=== PATIENT | female | born 1980 | race Caucasian/White ===

== ENCOUNTER 2017-06-11 06:23 | Day surgery (SDC) | payer MEDICAID, SELFPAY ==
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
[2017-06-11 06:52] LABS: Internal QC Validated? YES +Cl - CLEAR BKGD; Pregnancy, Urine Negative Negative
[2017-06-11 07:06] VITALS: BP 115/77; PULSE 96; RESP 16; TEMP 36.8; O2SAT 100; BMI 21.1
[2017-06-11] MEDS: Clindamycin 900 MG/50 ML BAG 75 MG IV (08:27)
[2017-06-11] MEDS: Mupirocin Ointment 22gm Tube 1 APPLIC (12:45)
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
[2017-06-11 13:12] VITALS: BP 107/67; BP 115/77; PULSE 92; RESP 16; TEMP 36.4; O2SAT 98
--- NOTE | 2017-06-11 13:12 | PCM.DC ---
You will use the following diet at home:: No restrictions Discharge Activity: May not drive while taking narcotic pain medications., May Shower - only from the neck down in 2 days. wash face gently in the sink., - - keep head elevated. May resume sexual activity in: No Restrictions Weight Bearing Status: Weight bearing as tolerated Lifting Restrictions: 10 lbs. Keep extremity elevated above heart level: - - elevate head Call your doctor if your incision/area has: Continuous Slow Oozing, Sudden Increased Bleeding, Increased Pain/ Swelling, Increased Redness, Foul Smelling Discharge, Swelling at the incision site Call your doctor if you observe: Fever of 101 or Higher, Coldness, Increased Pain, Shortness of breath, Chest pain, Calf discomfort, Uncontrolled pain Change Dressing in (Days):: 2 - patient may change the right neck dressing. Remove Dressing in (days):: 5 - will remove ear dressing in the office. Cleanse incision/area with: - - may get incisions and grafts and flaps of the right ear wet in the shower after the skin graft dressing has been removed in the office. Allergies/Adverse Reactions: Allergies latex Allergy (Verified 05/13/17 10:29) Hives Medications to take at Discharge Clindamycin HCl [Cleocin] 300 mg PO TID #21 cap 06/11/17 Oxycodone HCl/Acetaminophen [Percocet 5/325] 1 - 2 tab PO 4X/DAY PRN PRN 5 Days #40 tab 06/11/17 The following prescriptions were given: Oxycodone HCl/Acetaminophen [Percocet 5/325] 1 - 2 tab PO 4X/DAY PRN PRN 5 Days #40 tab PRN Reason: Pain Clindamycin HCl [Cleocin] 300 mg PO TID #21 cap Primary Care Physician: Care Physician,No Primary [Primary Care Provider] - Please Follow Up With: Santos Corona MD When: thursday06/15/17. call [phone] for appt. Proposed Discharge Date: 06/11/17
[2017-06-11 13:30] VITALS: BP 100/58; BP 115/77; PULSE 75; RESP 16; O2SAT 98
[2017-06-11 13:45] VITALS: BP 115/77; BP 94/54; PULSE 85; RESP 16; O2SAT 97
[2017-06-11 14:00] VITALS: BP 115/77; BP 93/56; PULSE 75; RESP 16; TEMP 36.7; O2SAT 98
[2017-06-11 14:46] VITALS: BP 115/77
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
== END 2017-06-11 15:00 | disposition home or self-care (01) ==
LOC: SDC 06:24 → AC 06:24
PROVIDERS: Anesthesiology; Visit Provider Surgery
PROC: (CPT 15240; principal; 2017-06-11 07:50)
DX: S08.12 Partial traumatic amputation of ear (principal); L90.5 Scar conditions and fibrosis of skin; S01.35 Open bite of ear; W54.0XXS Bitten by dog, sequela; Y93.89 Activity, other specified; F17.210 Nicotine dependence, cigarettes, uncomplicated
CPT/HCPCS: 00120; 15240; 21235; 64450; 81025; J7120; J2405

== ENCOUNTER 2025-02-01 20:12 | Observation (INO) | payer MEDICAID, SELFPAY ==
[2025-02-01] VITALS (10 sets, daily range): BP systolic 113–178; BP diastolic 87–104; PULSE 81–136; RESP 16–20; TEMP 35.8–36.7; O2SAT 98–100; BMI 25.9; BMI 26.2; BMI 25.7
--- NOTE | 2025-02-01 20:20 | CT_ITS ---
PROCEDURE: STROKE CT BRAIN/HEAD WITHOUT CONT; STROKE CTA HEAD AND NECK W/CON 02/01/2025 REASON FOR EXAM: NEURO DEFICIT, ACUTE STROKE SUSPECTED TECHNIQUE: Procedure Code: CTBR.ST; CTCTA.ST.HN Modality: CT Procedure: STROKE BRAIN/HEAD WITHOUT CONT; STROKE CTA HEAD AND NECK W/CON Coronal and Sagittal reconstructions were provided. 3D post processing was performed. 100 cc of Isovue 370 intravenous contrast was administered. One or more dose reduction techniques were used (e.g., Automated exposure control, adjustment of the mA and/or kV according to patient size, use of iterative reconstruction technique. RADIATION DOSE SUMMARY: Head: DLP: 872.68 mGycm CTA head/neck: DLP: 964.1 mGycm COMPARISON: None available. FINDINGS: CTA HEAD: Patent intracranial arterial vasculature. No large vessel occlusion, flow- limiting stenosis, saccular aneurysm, or vascular malformation identified. Dural venous sinuses appear patent. CTA NECK: Conventional aortic arch branching. Bilateral cervical carotid and codominant vertebral arteries are patent without significant stenosis. No aneurysm or dissection. NONCONTRAST CT HEAD: No acute intracranial hemorrhage, extra-axial collection, mass effect or evidence of acute infarct. Ventricles and subarachnoid spaces are normal in size. Unremarkable orbits. Intact skull base and calvarium. Mild scattered peripheral mucosal thickening in the paranasal sinuses. No mastoid effusions. CT/STROKE Brain/Head without Cont IMPRESSION: No acute intracranial abnormality. Normal CTA of the head and neck. Findings communicated with provider Darby Goldstein 02/01/2025 at 7:55 p.m. 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 Reading Location: [id number]
--- NOTE | 2025-02-01 20:20 | CT_ITS ---
PROCEDURE: STROKE CT BRAIN/HEAD WITHOUT CONT; STROKE CTA HEAD AND NECK W/CON 02/01/2025 REASON FOR EXAM: NEURO DEFICIT, ACUTE STROKE SUSPECTED TECHNIQUE: Procedure Code: CTBR.ST; CTCTA.ST.HN Modality: CT Procedure: STROKE BRAIN/HEAD WITHOUT CONT; STROKE CTA HEAD AND NECK W/CON Coronal and Sagittal reconstructions were provided. 3D post processing was performed. 100 cc of Isovue 370 intravenous contrast was administered. One or more dose reduction techniques were used (e.g., Automated exposure control, adjustment of the mA and/or kV according to patient size, use of iterative reconstruction technique. RADIATION DOSE SUMMARY: Head: DLP: 872.68 mGycm CTA head/neck: DLP: 964.1 mGycm COMPARISON: None available. FINDINGS: CTA HEAD: Patent intracranial arterial vasculature. No large vessel occlusion, flow- limiting stenosis, saccular aneurysm, or vascular malformation identified. Dural venous sinuses appear patent. CTA NECK: Conventional aortic arch branching. Bilateral cervical carotid and codominant vertebral arteries are patent without significant stenosis. No aneurysm or dissection. NONCONTRAST CT HEAD: No acute intracranial hemorrhage, extra-axial collection, mass effect or evidence of acute infarct. Ventricles and subarachnoid spaces are normal in size. Unremarkable orbits. Intact skull base and calvarium. Mild scattered peripheral mucosal thickening in the paranasal sinuses. No mastoid effusions. CT/STROKE CTA Head AND Neck W/Con IMPRESSION: No acute intracranial abnormality. Normal CTA of the head and neck. Findings communicated with provider Darby Goldstein 02/01/2025 at 7:55 p.m. 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 Reading Location: [id number]
[2025-02-01 20:30] LABS: Hematocrit 37.6 % (37-47); Hemoglobin 13.3 g/dL (12.0-15.0); Immature Granulocytes Count 0.020 X10^3/uL (0.0-0.0); Mean Corp Hgb Conc 35.4 g/dL (32-36); Mean Corpuscular Volume 89.5 fL (81-99); Mean Platelet Vol. 9.5 fl (6.2-12.0); NRBC Flagged by Analyzer 0 % (0-5); Platelet Count 312 K/mm3 (150-450); RBC Distribution Width CV 12.7 % (11.6-14.6); RBC Distribution Width SD 41.4 fl (35.1-43.9); Red Blood Count 4.20 M/mm3 (4.2-5.4); White Blood Count 9.8 K/mm3 (4.4-11.0)
[2025-02-01 20:44] LABS: Prothrombin Time (Protime)PT. 13.5 SECONDS (11.7-14.9)
[2025-02-01 20:45] LABS: Partial Thromboplast Time 26.5 Seconds (24.1-36.2)
[2025-02-01 20:49] LABS: Anion Gap 11 (5-15); BUN 18 mg/dL (4-19); BUN/Creat Ratio 23.8 RATIO (10-20); Calcium,Total 9.4 mg/dL (7.6-11.0); Carbon Dioxide 25.4 mmol/L (21.0-32.0); Chloride 104 mmol/L (98-108); Estimated Creatinine Clearance 84.33 ml/min (50-250); Glucose 102 mg/dL (70-99); Potassium 3.6 mmol/L (3.3-5.1); Troponin T High Sensitivity 7 ng/L (<=14)
--- NOTE | 2025-02-01 21:14 | ED.VIS.STROK ---
HPI History of Present Illness Chief Complaint: Stroke Alert Narrative Narrative: Patient is a 44-year-old female presenting to the emergency department due to concern for stroke. Last known well was 5 PM. She is not on any anticoagulation at home. She reports that she felt that her equilibrium was off and developed slurred speech and right facial numbness. She denies any history of symptoms like this. She denied any drug use to me. Denied any chest pain, shortness of breath, abdominal pain, nausea, vomiting, diarrhea. Denies any fevers, headache, visual changes, neck or back pain. PFSH PFSH Medical History AFTERCARE PLASTIC SURGERY MULTPLE DOG BITE WOUNDS RIGHT MEDIAL CHEEK DOG BITE WOUND RIGHT EAR 4 CM CURVILINEAR DOG BITE WOUND RIGHT MEDIAL CHEEK MULTIPLE DOG BITE PUNCTURE WOUNDS RIGHT FOREARM 3 CM DOG BITE WOUND RIGHT TEMPORAL SCALP Smoker Bitten by dog, subsequent encounter Open bite of right ear, subsequent encounter OPEN BITE OF RIGHT MEDIAL CHEEK BY COMMISSURE, Open bite of right forearm, subsequent encounter Open bite of scalp, subsequent encounter Bitten by dog, sequela OPEN DOGBITE WOUND RIGHT MEDIAL CHEEK open dogbite wound right ear Past use of tobacco Home Medications ?Medication ?Instructions ?Recorded ?Last Taken ?Type NK 02/01/25 Unknown History Allergy/AdvReac Type Severity Reaction Status Date / Time latex Allergy Hives Verified 02/01/25 20:16 Family History Unknown No problems noted. Surgical History SURGICAL PREPARATION DOG BITE RIGHT MEDIAL CHEEK EXCISIONAL DEBRIDEMENT DOGBITE WOUND Social History Smoking Status: Current some day smoker tobacco type: cigarettes second hand exposure: Yes alcohol intake: former substance use type: marijuana what type of physical activity do you participate in: other seatbelt use: always additional social history: SUN EXPOSURE: FREQUENTLY ROS ROS ED ROS Narrative See HPI EXAM Physical Exam Narrative Exam Narrative: Vital signs: Reviewed General: Alert and oriented x 3. No acute distress HEENT: Head is normocephalic and atraumatic, sinuses nontender, pupils equal round and reactive. Nares are patent. Oropharynx and throat exams normal. Neck: Supple without lymphadenopathy nontender Cardiovascular: Regular rate and rhythm, no murmurs. No rubs or gallops. Normal S1 and S2 Respiratory: Clear to auscultation bilaterally. No wheezes, rales, rhonchi Abdominal: Soft and nontender. Normal bowel sounds. No guarding or rebound. Nonsurgical abdomen Extremities: No tenderness. No bruising. Normal range of motion. Normal sensation. Skin: No rash or redness. The rest of the physical exam is unremarkable Const Vital Signs: 02/01/25 20:17 02/01/25 20:35 02/01/25 20:35 Temperature 96.5 F L Temperature Source Temporal Pulse Rate 136 H 85 Respiratory Rate 20 H 16 Blood Pressure 151/95 H 178/104 H Blood Pressure Mean 113 128 Pulse Ox 98 100 100 Oxygen Delivery Method Room Air Room Air Room Air 02/01/25 20:48 02/01/25 21:02 02/01/25 21:18 Temperature 98.0 F Temperature Source Temporal Pulse Rate 87 87 83 Respiratory Rate 18 18 19 H Blood Pressure 155/98 H 146/93 H 150/96 H Blood Pressure Mean 117 110 114 Pulse Ox 100 100 98 Oxygen Delivery Method Room Air Room Air Room Air 02/01/25 21:30 02/01/25 22:00 02/01/25 22:00 Temperature 97.9 F Temperature Source Oral Pulse Rate 109 H 86 86 Respiratory Rate 17 16 16 Blood Pressure 113/91 H 155/91 H 155/91 H Blood Pressure Mean 98 112 112 Pulse Ox 100 99 99 Oxygen Delivery Method Room Air Room Air Room Air MDM MDM MDM Narrative Medical decision making narrative: Patient is a 44-year-old female presenting to the emergency department for strokelike symptoms. Stroke team was called by nursing staff in triage. I went to immediately evaluate the patient. NIH of 1 for the sensation deficit on the right sided cheek. Patient was reporting slurred speech but none was noted on my exam. Speech is clear. Patient was taken to CT for CT brain and CTA head and neck. Additional stroke workup was initiated. CBC with no leukocytosis and a normal hemoglobin. BMP with no significant normalities. Troponin and reflex within normal limits. EKG shows normal sinus rhythm. No ischemic changes. No dysrhythmia. TSH within normal limits. Urine drug screen positive for amphetamines, cocaine and cannabinoids. CT of the brain shows no acute intracranial abnormality. CTA of the head and neck was normal. Stroke radiology [facility], Dr. Prince Lord evaluated the patient at bedside via telerobot. When he evaluated the patient she also had a low NIH. Lytics were discussed with the patient however she agrees that they are nondisabling. Patient was loaded with aspirin and Plavix per recommendations from telestroke. Discussed admission for further stroke workup with the patient and she is agreeable. Patient admitted to Dr. Rico. Clinical impression: Stroke like symptoms Polysusbtance abuse History & Record Review Discussion w/independent historian: Patient Lab Data Attestation: I reviewed the patient's lab results. Labs: Laboratory Results - last 24 hr 02/01/25 02/01/25 02/01/25 01:34 20:16 20:20 WBC 9.8 RBC 4.20 Hgb 13.3 Hct 37.6 MCV 89.5 MCH 31.7 MCHC 35.4 RDW Std Deviation 41.4 RDW Coeff of Traci 12.7 Plt Count 312 MPV 9.5 Immature Gran % (Auto) 0.200 Neut % (Auto) 52.8 Lymph % (Auto) 36.0 [place] % (Auto) 7.0 Eos % (Auto) 3.5 Baso % (Auto) 0.5 Absolute Neuts (auto) 5.2 Absolute Lymphs (auto) 3.54 Nucleated RBC % 0 PT 13.5 INR 1.0 APTT 26.5 Sodium 140 Potassium 3.6 Chloride 104 Carbon Dioxide 25.4 Anion Gap 11 BUN 18 Creatinine 0.75 Estim Creat Clear Calc 84.33 Est GFR (MDRD) Non-Af 101 BUN/Creatinine Ratio 23.8 H Glucose 102 H Hemoglobin A1c 5.5 Calcium 9.4 Troponin T High Sens 7 Troponin T Hi Sens 2 Hr TSH 0.873 Urine Opiates Screen U Buprenorphine Qual Ur Oxycodone Screen Urine Methadone Screen Urine Fentanyl Screen Ur Barbiturates Screen Ur Phencyclidine Scrn Ur Amphetamines Screen U Benzodiazepines Scrn Urine Cocaine Screen U Cannabinoids Screen Ethyl Alcohol < 10.1 POC Glucose 94 02/01/25 02/01/25 21:03 22:16 WBC RBC Hgb Hct MCV MCH MCHC RDW Std Deviation RDW Coeff of Traci Plt Count MPV Immature Gran % (Auto) Neut % (Auto) Lymph % (Auto) [place] % (Auto) Eos % (Auto) Baso % (Auto) Absolute Neuts (auto) Absolute Lymphs (auto) Nucleated RBC % PT INR APTT Sodium Potassium Chloride Carbon Dioxide Anion Gap BUN Creatinine Estim Creat Clear Calc Est GFR (MDRD) Non-Af BUN/Creatinine Ratio Glucose Hemoglobin A1c Calcium Troponin T High Sens Troponin T Hi Sens 2 Hr < 6 TSH Urine Opiates Screen NEGATIVE U Buprenorphine Qual NEGATIVE Ur Oxycodone Screen NEGATIVE Urine Methadone Screen NEGATIVE Urine Fentanyl Screen NEGATIVE Ur Barbiturates Screen NEGATIVE Ur Phencyclidine Scrn NEGATIVE Ur Amphetamines Screen PRESUMPTIVE POSITIVE U Benzodiazepines Scrn NEGATIVE Urine Cocaine Screen PRESUMPTIVE POSITIVE U Cannabinoids Screen PRESUMPTIVE POSITIVE Ethyl Alcohol POC Glucose Radiography Diagnostic Testing: Clinical Impression(s) from Imaging Studies Brain CT 02/01/25 20:20 IMPRESSION: No acute intracranial abnormality. Normal CTA of the head and neck. Findings communicated with provider Darby Goldstein 02/01/2025 at 7:55 p.m. SUPERVISOR ABATTO[employer]. Reading Location: [facility] Head/Neck CTA 02/01/25 20:20 IMPRESSION: No acute intracranial abnormality. Normal CTA of the head and neck. Findings communicated with provider Darby Goldstein 02/01/2025 at 7:55 p.m. SUPERVISOR [employer]ATTO[employer]. Reading Location: [facility] Discharge Plan Disposition Disposition: Acute Care Hospital [facility] Discharge Date/Time: 02/01/25 22:44 NIHSS NIHSS 1a. Level of Consciousness: 0 - Alert; keenly responsive 1b. LOC Questions: 0 - Answers BOTH questions correctly 1c. LOC Commands: 0 - Performs BOTH tasks correctly 2. Best Gaze: 0 - Normal 3. Visual: 0 - No visual loss 4. Facial Palsy: 0 - Normal symmetrical movements 5a. Left Arm: 0 - No drift; arm holds 90 (or 45) degrees for full 10 seconds 5b. Right Arm: 0 - No drift; arm holds 90 (or 45) degrees for full 10 seconds 6a. Left Le - No drift; leg holds 30-degree position for full 5 seconds 6b. Right Le - No drift; leg holds 30-degree position for full 5 seconds 7. Limb Ataxia: 0 - Absent 8. Sensory: 1 - [id number] sensory loss; 9. Best Language: 0 - No aphasia; normal 10. Dysarthria: 0 - Normal 11. Extinction and Inattention: 0 - No abnormality Total: 1 Stroke Questions Stroke Team Activated: Yes Reviewed Inclusion/Exclusion criteria: Yes IV Thrombolytic Administered: No No contraindications from thrombolytic administration: No
[2025-02-01 21:38] LABS: Barbiturate Urine NEGATIVE (< 200 ng/mL); Benzodiazepine Urine NEGATIVE (< 200 ng/mL); PCP Urine NEGATIVE (< 25 ng/mL); THC Urine PRESUMPTIVE POSITIVE (< 50 ng/mL)
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
--- NOTE | 2025-02-01 22:28 | ECHOD_ITS ---
Reason For Study Reason For Study: TIA/STROKE Procedure This was a 2D Doppler, Color Flow transthoracic echocardiogram. Exam performed portable in patient room. Left Ventricle Normal size and thickness. The left ventricular ejection fraction is 65 %. No evidence for diastolic dysfunction. Right Ventricle Normal right ventricle. Atria The left and right atria are normal. Bubble contrast study is negative for PFO/ASD. Mitral Valve Trivial mitral valve insufficiency. Tricuspid Valve Trivial tricuspid valve insufficiency. Normal pulmonary artery pressure. Aortic Valve Trisinus/trileaflet aortic valve. Pulmonic Valve Trivial pulmonic valve insufficiency. Great Vessels Normal sized aortic root. Pericardium/Pleural No pericardial effusion. Medication Performed a rapid injection of agitated mix of 9 cc saline and 1cc air to assess for atrial septal defect. MMode/2D Measurements & Calculations LVIDd: 4.4 cm IVSd: 0.91 cm Ao root diam: 3.2 cm LVIDs: 3.0 cm LVPWd: 0.97 cm RVDd: 3.2 cm FS: 31.4 % LAV(MOD-bp): 32.5 ml LVAd ap4: 26.2 cm2 SV(MOD-sp4): 45.4 ml LAV(MOD-bp) Indexed: 20.0 ml/m2 LVLd ap4: 7.8 cm SI(MOD-sp4): 28.0 ml/m2 LAV(MOD-sp2): 30.0 ml EDV(MOD-sp4): 74.7 ml LAV(MOD-sp4): 33.6 ml EDV(sp4-el): 74.6 ml LVAs ap4: 14.8 cm2 LVLs ap4: 6.4 cm ESV(MOD-sp4): 29.4 ml ESV(sp4-el): 29.1 ml EF(MOD-sp4): 60.7 % EF(sp4-el): 61.0 % SV(sp4-el): 45.5 ml LA A4 area: 14.8 cm2 LA dimension(2D): 2.9 cm RA A4 area: 13.9 cm2 TAPSE: 2.0 cm Time Measurements MV dec time: 0.17 sec Doppler Measurements & Calculations MV E max mark: 78.2 cm/sec Lat Peak E' Mark: 14.1 cm/sec Med Peak E' Mark: 11.8 cm/sec MV A max mark: 77.8 cm/sec E/E' lat: 5.5 E/E' med: 6.6 MV E/A: 1.0 Ao V2 max: 130.6 cm/sec LV V1 max: 117.5 cm/sec PA V2 max: 75.4 cm/sec Ao max P.8 mmHg LV V1 max P.5 mmHg TR max mark: 226.2 cm/sec TR max P.5 mmHg ECHO/Echo Complete Interpretation Summary The left ventricular ejection fraction is 65 %. No evidence for diastolic dysfunction. Bubble contrast study is negative for PFO/ASD. Ordering Physician: Macho Farooq Performed By: Mirtha Moura RDCS
[2025-02-01 22:40] LABS: Troponin T High Sens 2 HR < 6 ng/L (<=14)
[2025-02-01] MEDS: 0.9% Normal Saline (1000mL) 1,000 ML 100 ML IV (23:39)
[2025-02-02 00:28] LABS: Alcohol, Blood (Medical)-Serum < 10.1 mg/dL (<=10.0)
[2025-02-02 01:07] VITALS: BMI 25.7
[2025-02-02 01:31] LABS: Troponin T High Sens 4 HR < 6 ng/L (<=14)
[2025-02-02 01:45] VITALS: O2SAT 99
[2025-02-02 03:00] VITALS: BP 139/86; PULSE 78; RESP 18; TEMP 36.3; O2SAT 97
[2025-02-02 06:25] LABS: Cholesterol 185 mg/dL (<=200); Low Density Lipoprotein Calc. 112 mg/dL; Triglycerides 167 mg/dL; Very Low Density Lipoprotein 33 mg/dL (5-40); cholesterol:hdl ratio screen 4.71
[2025-02-02 06:36] VITALS: BP 145/81; PULSE 73; RESP 18; TEMP 35.8; O2SAT 99
[2025-02-02 07:50] VITALS: BP 125/85; PULSE 78; RESP 16; TEMP 36.4; O2SAT 100
[2025-02-02] MEDS: Nicotine (PBKC) 14 MG Patch TD (07:55)
--- NOTE | 2025-02-02 10:30 | CASEMGMT ---
Social Work SW spoke with the patient regarding POA and SDOH. Patient reported [place] recently [place] here [place] after getting . She reported she has been staying with different friends. She reported her daughter lives here and stays with her dad. She reported she does not have a car and her friends gives her rides. She reported she is not interested in talking to someone about her drug use. She reported she does not where she is going to stay at discharge and she does not have anyone that can pick her up. CHIVO provided the patient with a informational booklet for POA/LW. SW provided the patient with a street card, [employer], [employer], food pantries and shelters as resources. CALLIE Gaines
--- NOTE | 2025-02-02 11:00 | CT_ITS ---
PROCEDURE: STROKE BRAIN/HEAD WITHOUT CONT 02/02/2025 REASON FOR EXAM: DIZZINESS, SLURRED SPEECH TECHNIQUE: Procedure Code: CTBR.ST Modality: CT Procedure: STROKE BRAIN/HEAD WITHOUT CONT Coronal and Sagittal reconstruction series were provided. One or more dose reduction techniques were used (e.g., Automated exposure control, adjustment of the mA and/or kV according to patient size, use of iterative reconstruction technique. RADIATION DOSE SUMMARY: CTDlvol: 45 mGy DLP: 748 mGycm COMPARISON: February 01, 2025 FINDINGS: Brain: There is no evidence of hemorrhage, acute ischemia or mass. No extra- axial fluid collection, midline shift or mass effect. CSF Spaces: Normal Sinuses/Mastoids: Clear Bones: No fracture CT/STROKE Brain/Head without Cont IMPRESSION: 1. No acute intracranial abnormality Stroke Alert: As above The critical findings in the findings and impression above were relayed directl y by me by telephone to AUNG Centeno in the PCU on 02/02/2025 at 11:21 am with readback verification. Reading Location: [id number]
--- NOTE | 2025-02-02 11:31 | PN.NEURO_ITS ---
Objective Data Objective Data Vital Signs: Vital Signs Temp Pulse Resp BP Pulse Ox O2 Del Method 97.6 F L 78 16 125/85 H 100 Room Air 02/02/25 07:50 02/02/25 07:50 02/02/25 07:50 02/02/25 07:50 02/02/25 07:50 02/02/25 07:50 Oxygen Delivery Method Room Air Weight: 63.7 kg Body Mass Index (BMI) 25.7 Intake & Output: Intake and Output for Last 24 Hours 01/31/25 02/01/25 02/02/25 23:59 23:59 23:59 Intake Total 1400 / 1400 Balance 1400 / 1400 Lab / Micro Data 02/01/25 20:20 02/01/25 20:20 Labs: Laboratory Results - last 24 hr 02/01/25 01:34: Hemoglobin A1c 5.5, TSH 0.873 02/01/25 20:16: POC Glucose 94 02/01/25 20:20: WBC 9.8, RBC 4.20, Hgb 13.3, Hct 37.6, MCV 89.5, MCH 31.7, MCHC 35.4, RDW Std Deviation 41.4, RDW Coeff of Traci 12.7, Plt Count 312, MPV 9.5, Immature Gran % (Auto) 0.200, Neut % (Auto) 52.8, Lymph % (Auto) 36.0, [place] % (Auto) 7.0, Eos % (Auto) 3.5, Baso % (Auto) 0.5, Absolute Neuts (auto) 5.2, Absolute Lymphs (auto) 3.54, Nucleated RBC % 0, PT 13.5, INR 1.0, APTT 26.5, Sodium 140, Potassium 3.6, Chloride 104, Carbon Dioxide 25.4, Anion Gap 11, BUN 18, Creatinine 0.75, Estim Creat Clear Calc 84.33, Est GFR (MDRD) Non-Af 101, B UN/Creatinine Ratio 23.8 H, Glucose 102 H, Calcium 9.4, Troponin T High Sens 7, Ethyl Alcohol < 10.1 02/01/25 21:03: Urine Opiates Screen NEGATIVE, U Buprenorphine Qual NEGATIVE, Ur Oxycodone Screen NEGATIVE, Urine Methadone Screen NEGATIVE, Urine Fentanyl Screen NEGATIVE, Ur Barbiturates Screen NEGATIVE, Ur Phencyclidine Scrn NEGATIVE, Ur Amphetamines Screen PRESUMPTIVE POSITIVE, U Benzodiazepines Scrn NEGATIVE, Urine Cocaine Screen PRESUMPTIVE POSITIVE, U Cannabinoids Screen PRESUMPTIVE POSITIVE 02/01/25 22:16: Troponin T Hi Sens 2 Hr < 6 02/02/25 00:40: Troponin T Hi Sens 4Hr < 6 02/02/25 05:01: Triglycerides 167, Cholesterol 185, LDL Cholesterol, Calc 112, VLDL Cholesterol 33, HDL Cholesterol 39 L, Cholesterol/HDL Ratio 4.71 Radiography Diagnostic Testing: Radiology Impression Brain CT 02/01/25 20:20 IMPRESSION: No acute intracranial abnormality. Normal CTA of the head and neck. Findings communicated with provider Daryb Goldstein 02/01/2025 at 7:55 p.m. RADIO F[employer]QU[employer]Y DESIGN ENGINEER. Reading Location: [facility] Head/Neck CTA 02/01/25 20:20 IMPRESSION: No acute intracranial abnormality. Normal CTA of the head and neck. Findings communicated with provider Darby Goldstein 02/01/2025 at 7:55 p.m. RADIO FREQUENCY DESIGN ENGINEER. Reading Location: [facility] Echocardiogram 02/01/25 22:28 Interpretation Summary The left ventricular ejection fraction is 65 %. No evidence for diastolic dysfunction. Bubble contrast study is negative for PFO/ASD. Ordering Physician: Macho Farooq Performed By: Mirtha Moura RDCS Brain CT 02/02/25 11:00 IMPRESSION: 1. No acute intracranial abnormality Stroke Alert: As above The critical findings in the findings and impression above were relayed directly by me by telephone to AUNG Centeno in the PCU on 02/02/2025 at 11:21 am with readback verification. Reading Location: [facility] Social Homelessness:: Sheltered Physical Exam Neuro Neuro Narrative: Neurological examination: General: The patient appears nutritionally appropriate, well-groomed, and appears comfortable in no acute distress. Mental Status: The patient?s mental status was normal including orientation. Language was intact. Cranial nerves: Visual daniels full, and extra-ocular motion was intact. Face motion symmetric. There was no dysarthria. Motor: Normal strength and tone in all four extremities. No pronator drift. Sensation: Decreased light touch in right face/arm/leg, no extinction. Coordination: Bilateral finger to nose was normal. There was no dysmetria. Gait: deferred Subject: Neurology Subjective Currently she has ARMSTRONG. She feels better. She still has weakness and numbness on right side (face/arm/leg). Balance is better. Patient denies drug use (says it was her boyfriends). She does have a surgical piercing in her face and can not have an MRI. Repeat CT brain negative today. EEG Results Procedure Details EEG Procedure Details: Assessment and Plan: Stroke Assessment/Plan NELSON HANNON is a 44 year old right handed female smoker with a history of polysubstance use who on 02/01/25 at 530p developed dizziness (light-headedness), dysarthria, and right sided numbness/heaviness. She also noted some dysequilibrium (felt off balance while preparing dinner). She presented to [place] ER. CT brain negative. CTA head/neck negative. Telestroke showed NIHSS- 1. She was admitted. Unable to MRI due to surgical piercing. Repeat CT brain negative. LDL 112. HgbA1c 5.5. TTE EF 65%, no shunt. She is on Asa/plavix, nicotine, lipitor 80, and lovenox SQ. Patient denies drug use. Neurological examination shows right sensory, NIHSS-1 (sensory-1) ASSESSMENT/PLAN: Possible acute ischemic stroke 1) Stroke work-up completed 2) Continue daily antiplatelet medication. Recommend dAPT (Asa/plavix) x 21 days then after that discontinue plavix and continue Asa only. 3) Continue vascular risk factor modification. On lipitor 80. Smoking cessation reinforced. Cessation of drugs of abuse reinforced. 4) Follow-up in outpatient neurology clinic. Will sign off, please call us back with further stroke related questions. Primary team messaged recs on backline. Camila Fabian MD NIHSS NIHSS Nursing Documentation NIHSS Nursing Documentation: NIHSS: Ischemic Stroke/TIA Start: 02/01/25 22:48 Text: For PCU Patients: NIH and Neuro Check every 4 Status: Active hours, PRN and with change in RN caregiver. Freq: [id number] Protocol: Activity Type Activity Date Activity User E-sign Co-sign Detail Recorded Client Recorded Date Recorded By Document 02/02/25 07:50 [id number] 02/02/25 08:02 HS 02/02/25 07:50 NIH Stroke Scale [NIHSS] A score of 0 is normal or asymptomatic . Total possible score is 42. Inpatient: RN or Physician to activate a stroke alert for onset of new stroke symptoms or with NIHSS increase >/= 3 points. Following change in neurological status, NIHSS will be performed per physician order or more frequently PRN. -1a. Level of Consciousness 0 - Alert; keenly responsive -1b. LOC Questions 0 - Answers BOTH questions correctly -1c. LOC Commands 0 - Performs BOTH tasks correctly -2. Best Gaze 0 - Normal -3. Visual 0 - No visual loss -4. Facial Palsy 0 - Normal symmetrical movements -5a. Left Arm 0 - No drift; arm holds 90 ( or 45) degrees for full 10 seconds -5b. Right Arm 0 - No drift; arm holds 90 ( or 45) degrees for full 10 seconds -6a. Left Leg 0 - No drift; leg holds 30- degree position for full 5 seconds -6b. Right Leg 0 - No drift; leg holds 30- degree position for full 5 seconds -7. Limb Ataxia 0 - Absent -8. Sensory 1 - Mild-to- moderate sensory loss; -9. Best Language 0 - No aphasia; normal -10. Dysarthria 0 - Normal -11. Extinction and Inattention 0 - No abnormality -Total 1 Query Text:A score of 0 is normal or asymptomatic. Total possible score is 42 . ED: Notify Physician for NIHSS increase by > / = 3 points. Inpatient: RN or Physician to activate a stroke alert for NIHSS increase of > / = 3 points. Coma Scale [Assess] -Eye Opening Spontaneous -Motor Obeys Commands -Verbal Oriented [Total] -Coma Scale Total 15 NIHSS 1a. Level of Consciousness: 0 - Alert; keenly responsive 1b. LOC Questions: 0 - Answers BOTH questions correctly 1c. LOC Commands: 0 - Performs BOTH tasks correctly 2. Best Gaze: 0 - Normal 3. Visual: 0 - No visual loss 4. Facial Palsy: 0 - Normal symmetrical movements 5a. Left Arm: 0 - No drift; arm holds 90 (or 45) degrees for full 10 seconds 5b. Right Arm: 0 - No drift; arm holds 90 (or 45) degrees for full 10 seconds 6a. Left Le - No drift; leg holds 30-degree position for full 5 seconds 6b. Right Le - No drift; leg holds 30-degree position for full 5 seconds 7. Limb Ataxia: 0 - Absent 8. Sensory: 1 - [id number] sensory loss; 9. Best Language: 0 - No aphasia; normal 10. Dysarthria: 0 - Normal 11. Extinction and Inattention: 0 - No abnormality Total: 1
--- NOTE | 2025-02-02 11:44 | CASEMGMT ---
Social Work SW spoke with the patient and completed a PHQ9. Patient reported she would not care if she , but she has never had thoughts of suicide. She reported she would never hurt herself. She reported she would never to that to her daughter. Patent reported she would be interested in counseling. She reported she has been diagnosed with depression, anxiety, PTSD and bi-polar. She reported she does not currently take any medication. She reported she previously took 18 different medications but she did not like how they made her feel. CHIVO called the [facility] and and their shelters are full. SW called [facility] and left a message. SW called [facility] and they are going the patient to schedule a DA and they are going to meet with the patient today at that hospital today. Patient reported she completed a Medicaid application today with J[employer]. Patient reported her boyfriend uses drugs. CALLIE Gaines
[2025-02-02 12:21] VITALS: BMI 25.7
--- NOTE | 2025-02-02 13:15 | CASEMGMT ---
Social Work CHIVO spoke with the patient and informed her that [facility] has a bed available. Patient is agreeable with going there at [place]. CHIVO scheduled transportation with [facility] transport for 300pm. CHIVO informed the patient, nurse and physician of the transportation time. Patient was not interested in having a referral to any shelters in [place]. [facility] and [facility] have no beds available. CHIVO informed the patient that [facility] will be contacting her to schedule a diagnostic assessment. A therapist from [facility] meet with the patient in the hospital. CALLIE Gaines
--- NOTE | 2025-02-02 13:25 | DCINST_ITS ---
Discharge Instructions DC O2, CPAP, BIPAP needs Home O2 Discharge instructions: No Dressing / Incision Discharge Activity: - (Increase activity as tolerated) Follow Up Care Test Results: Test results from this visit will be discussed in further detail at your follow- up appointment, if applicable. Discharge Plan Admission Admit Date/Time: 02/01/25 22:23 Primary Reason for Your Visit: Stroke symptoms Attending Provider: Jayda Chung Primary Care Provider: Care Physician,No Primary Consulting Providers: Johny Patel; Destiney Cardozo; Leela Duckworth; Gogo Chan; Alyssa Wooten; Dedrick Cruz; Marion Gibbs; Prince Lord; Santos Mccormick; Issa Saldivar; Mary Cavanaugh; Julianna Cadet; Lorenzo Adkins; Kaycee Garcia; Elvira Hidalgo; Nay Valenzuela; Kevon Crespo; Claritza Lozano; [place]; Camila Fabian; Zoie Valenzuela; Macho Farooq Instructions Patient Instructions: TIA Dc Additional Instructions / Restrictions: DISCHARGE INSTRUCTIONS PLEASE READ *Please take this with you to your next doctors appointment* - You have been diagnosed with a TIA, also called a mini stroke -You will need to take Plavix and aspirin for 21 days, afterwards you will continue aspirin -You also need to take atorvastatin daily on discharge -These medications were sent to [facility] pharmacy -It will be important that you quit smoking and avoid any illicit substance use -Please follow-up with neurology upon discharge, you can establish with a local neurology office, Dr. Trejo's office, upon discharge. Please call to schedule an appointment for TIA (ph [phone]) -Please call your primary care provider's office upon discharge to schedule a hospital follow up within 1 week. -If you do not have a primary care physician of list of local primary care physicians can be provided for you upon discharge. Please ask for this list prior to discharge -For any concerning signs or symptoms please call 911 or proceed to the nearest emergency department Discharge Orders/Prescriptions Prescriptions: New atorvastatin 80 mg Tablet 80 mg PO QHS 30 Days Qty: 30 1RF clopidogrel 75 mg Tablet 75 mg PO DAILY 21 Days Qty: 21 0RF aspirin 81 mg Tablet,Chewable 81 mg PO DAILYCM 30 Days Qty: 30 1RF Referrals / Follow Up: Dipak Trejo MD [Non-Staff -Ordering Privileges, Neurology] - Within 1 Month Referral Note: -Please follow-up with neurology upon discharge, you can establish with a local neurology office, Dr. Trejo's office, upon discharge. Please call to schedule an appointment for TIA ( [phone]) Care Physician,No Primary [Primary Care Provider, Medical] Referral Note: -If you do not have a primary care physician of list of local primary care physicians can be provided for you upon discharge. Please ask for this list prior to discharge Disposition Disposition (needs filled in before D/C Order can be placed): Home, Self Care
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
[2025-02-02 13:50] VITALS: BP 152/98; PULSE 84; RESP 18; TEMP 36.6; O2SAT 98
[2025-02-02] MEDS: FLU VACCINE 2025-26(6MOS UP) 45 MCG/0.5 ML SYRINGE IM (13:52)
--- NOTE | 2025-02-02 14:16 | CASEMGMT ---
Addendum entered by Sera Ellison 02/02/25 14:24: SW requested that the pharmacy deliver the medications to the patients room. Addendum entered by Sera Ellison 02/02/25 14:20: SW called the pharmacy and notified them that the patient is DC at 300pm today. Original Note: Social Work SW submitted RX assist with [facility] pharmacy. CALLIE Gaines
--- NOTE | 2025-02-02 15:01 | CASEMGMT ---
Social Work SW called [facility] transport and informed them that the patient maybe 5 to 10 minutes late getting downstairs for picker and sorter load and unload. CALLIE Gaines
--- NOTE | 2025-02-02 15:03 | PHA.DC_ITS ---
Pharmacy [facility] has performed discharge medication counseling for this patient. The patient was counseled on the following discharge medications and changes in medications for homegoing review. The Reason for Use, instructions for use, and potential side effects were reviewed for all new medications. The patient's questions regarding all of their medications were answered. The patient was able to verbally demonstrate an understanding of their discharge medications. Medications at Discharge Home Medications aspirin 81 mg chewable tablet 81 mg PO DAILYCM 30 days #30 tabs 02/02/25 atorvastatin 80 mg tablet 80 mg PO QHS 30 days #30 tabs 02/02/25 clopidogrel 75 mg tablet 75 mg PO DAILY 21 days #21 tabs 02/02/25
--- NOTE | 2025-03-01 15:36 | CASEMGMT ---
AUNG CM: Call received from pt stating she needed assistance with getting a f/u neurology appointment. States she was told she had to be seen in the ED to get an appointment. This automatic typewriter inspector contacted Dr. Trejo's office who states they need a referral and that pt's DC instructions stating pt is to f/u with them is a referral. Business Education Instructor states she will call patient to schedule an appointment. During call with pt, pt states she did attend the appointment last week at the [facility] and that she also scheduled a PCP appointment with [facility] but this appointment is not until April. Explained that the [facility] [place] could serve as her PCP if desired. Pt states she has a f/u appointment at [facility] [place] on 03/16 that she plans to attend. Sharita Tobar RN AC
== END 2025-02-02 15:09 | disposition home or self-care (01) ==
LOC: ED 21:19 → PCU 23:14
PROVIDERS: Admitting Provider Internal Medicine; Emergency Provider Student in an Organized Health Care Education/Training Program; Visit Provider Internal Medicine
DX: G45.9 Transient cerebral ischemic attack, unspecified (principal); F15.10 Other stimulant abuse, uncomplicated; F14.10 Cocaine abuse, uncomplicated; Z59.01 Sheltered homelessness; R47.81 Slurred speech; R29.701 NIHSS score 1; R26.2 Difficulty in walking, not elsewhere classified; R29.898 Other symptoms and signs involving the musculoskeletal system; Z79.899 Other long term (current) drug therapy; R20.0 Anesthesia of skin; F17.210 Nicotine dependence, cigarettes, uncomplicated; R42 Dizziness and giddiness; F12.10 Cannabis abuse, uncomplicated
CPT/HCPCS: 36415; 70450; 70496; 70498; 80048; 80061; 80307; 82077; 82962; 83036; 84443; 84484; 85025; 85610; 85730; 92610; 93005; 93306; 94762; 96360; 96361; 96372; 97161; 97166; 99221; 99285; Q9967; A4216; G0378

== ENCOUNTER → 2025-03-16 | Outpatient (CLI) | payer MEDICAID, SELFPAY ==
[2025-03-16 16:43] LABS: Hematocrit 42.6 % (37-47); Hemoglobin 14.4 g/dL (12.0-15.0); Mean Corp Hgb Conc 33.8 g/dL (32-36); Mean Corpuscular Volume 92.8 fL (81-99); Mean Platelet Vol. 10.8 fl (6.2-12.0); Platelet Count 368 K/mm3 (150-450); RBC Distribution Width CV 12.6 % (11.6-14.6); RBC Distribution Width SD 42.9 fl (35.1-43.9); Red Blood Count 4.59 M/mm3 (4.2-5.4); White Blood Count 9.5 K/mm3 (4.4-11.0)
[2025-03-16 17:29] LABS: Barbiturate Urine NEGATIVE (< 200 ng/mL); Benzodiazepine Urine NEGATIVE (< 200 ng/mL); PCP Urine NEGATIVE (< 25 ng/mL); THC Urine PRESUMPTIVE POSITIVE (< 50 ng/mL)
[2025-03-16 17:34] LABS: AST(SGOT) 20 U/L (<=31); Alanine Aminotransfer ALT/SGPT 15 U/L (<=34); Albumin, Serum 4.6 g/dL (3.5-5.0); Alkaline Phosphatase 96 U/L (35-104); Anion Gap 14 (5-15); BUN 15 mg/dL (4-19); BUN/Creat Ratio 22.1 RATIO (10-20); Calcium,Total 9.8 mg/dL (7.6-11.0); Carbon Dioxide 23.1 mmol/L (21.0-32.0); Chloride 105 mmol/L (98-108); Cholesterol 176 mg/dL (<=200); Globulin 3.3 g/dL (2.2-4.2); Glucose 92 mg/dL (70-99); Low Density Lipoprotein Calc. 101 mg/dL; Potassium 4.4 mmol/L (3.3-5.1); Triglycerides 196 mg/dL; Very Low Density Lipoprotein 39 mg/dL (5-40); Vitamin B12 459 pg/mL (180-914); Vitamin D,25 Hydroxy 21.2 ng/mL (30-100); cholesterol:hdl ratio screen 4.28
[2025-03-16 17:35] LABS: CRP < 3.00 mg/L (0.0-3.0); Magnesium 2.2 mg/dL (1.5-2.2)
--- OUTSIDE RECORDS SUMMARY | 2025-03-16 19:11 | XMS RPT_ITS | CCD ---
Author Organization [facility] Care Team Providers Care Coil Placer Name Role Phone Santos Corona MD Unavailable RIGO BENNETT MD Attending Unavailable JEREMY ADAIR, DR TORRI Bautista Primary Care Unavaila ble Care Physician, No Primary Primary Care Provider Unavailable Care Physician, No Primary Referring Provider Un available García Isidro Attending Provider Michelet Maciel Attending Provider Care Physician, No Primary Primary Care Physicia n Unavailable García Isidro Attending Physician [phone] Michelet Maciel Attending Physician Angelita ADAIR, Dr. Pastor Emergency Department Physici an Unavailable Dr. Macho Rico DO Admitting Physician Kera vailable Rico DO, Dr. Pritchard Attending Physician Kera vailable Johny Patel Consulting Unavailable Care Physician, No Primary Primary Care Unava ilable Macho Rico Admitting Unavailable Macho Rico Attending Unavailable Destiney Cardozo Consulting Unavailable Hinduitz, Leela Consulting Unavailable Dustin Gogo Consulting Unavailable Je, Alyssa Consulting Unavailable Dedrick Cruz Consulting Unavailable Marion Gibbs Consulting Unavailable Prince Lord Consulting Unavailable Santos Mccormick Consulting Unavailable Issa Saldivar Consulting Unavailable Mary Cavanaugh Consulting Unavailable Julianna Cadet Consulting Unavailable Lorenzo Adkins Consulting Unavailable Kaycee Garcia Consulting Unavailable Elvira Hidalgo Consulting Unavailable Zaghlouleh, Mhd Addy Consulting UnavailKevon [place] Consulting Unavailable Lozano, Rami Consulting Unavailable Dong, West Consulting Unavailable Rui, Camila Consulting Unavailable Zoie Valenzuela Consulting Unavailable Macho Rico Consulting Unavailable Jayda Chung Attending Unavailable Jayda Chung Consulting Unavailable Amy Pimentel Attending Unavailable Care Physician, No Primary Primary Care Unava ilable Johny Patel Consulting Unavailable Care Physician, No Primary Primary Care Unava ilable Macho Rico Admitting Unavailable Jayda Chung Attending Unavailable Destiney Cardozo Consulting Unavailable Leela Duckworth Consulting Unavailable Gogo Chan Consulting Unavailable Alyssa Wooten Consulting Unavailable Dedrick Cruz Consulting Unavailable Marion Gibbs Consulting Unavailable Prince Lord Consulting Unavailable Santos Mccormick Consulting Unavailable Issa Saldivar Consulting Unavailable Mary Cavanaugh Consulting Unavailable Julianna Cadet Consulting Unavailable Lorenzo Adkins Consulting Unavailable Kaycee Garcia Consulting Unavailable RidElvira bell Consulting Unavailable Shmuel, Babatunded Addy Consulting UnavailKevon [place] Consulting Unavailable Lozano, Rami Consulting Unavailable Dong, West Consulting Unavailable Rui, Camila Consulting Unavailable Nicolas, Zoie Consulting Unavailable Macho Rico Consulting Unavailable Care Physician, No Primary Referring Unava ilable Care Physician, No Primary Primary Care Unava ilable García Isidro Attending Unavailable Care Physician, No Primary Referring Unava ilable Care Physician, No Primary Primary Care Unava ilable García Isidro Attending Unavailable Care Physician, No Primary Primary Care Unava ilable Care Physician, No Primary Referring Unava ilable Michelet Maciel Attending Unavailable Dr. Darby Goldstein MD Emergency Department Physici an Unavailable Dr. Macho Rico DO Admitting Physician Kera vailable Rico DO, Dr. Pritchard Nurse Practitioner Unav zach Patel MD, Johny Nurse Practitioner Unavailable Cas ADAIR, Dr. Cabello Nurse Practitioner Leela Duckworth MD Nurse Practitioner Unavailab ming Chan DO, Dr. Bowens Nurse Practitioner Dr. Alyssa Wooten MD Nurse Practitioner Anthony ADAIR, Dr. Tse Nurse Practitioner [phone] Bernie ADAIR, Dr. Schultz Nurse Practitioner Risa ADAIR, Dr. Morrison Nurse Practitioner Jace ADAIR, Dr. Grahma Nurse Practitioner Yariel ADAIR, Dr. Parsons Nurse Practitioner Mao LUNFSORD, Dr. Hernandez Nurse Practitioner Chichi ADAIR, Julianna Nurse Practitioner Lucille ADAIR, Dr. Ventura Nurse Practitioner Jose ADAIR, Dr. Benoit Nurse Practitioner Gwen ADAIR, Dr. Felix Nurse Practitioner Shmuel ADAIR, Dr. Nay Daly Nurse Practitioner Zak ADAIR, Dr. Lund Nurse Practitioner Blake ADAIR, Dr. Jerry Nurse Practitioner Dong ADAIR, Dr. Dodson Nurse Practitioner Rui ADAIR, Dr. Jensen Nurse Practitioner Derrick Valenzuela MD, Lazarusavis Nurse Practitioner Derrick Chung MD, Dr. Montelongo Attending Physician Margarito ADAIR, Dr. Reyes Attending Physician Sheldon ADAIR, Dr. Montelongo Nurse Practitioner Allergies Allergy Classification Reported Allergen(s) Allergy Type Date of Onset Reaction(s) Facility (1 source) natural latex rubber; Translations: [LATEX] allergy to substance 02-20-2016 [facility] Work Phone: (6 sources) Latex Allergy to substance 07-22-2017 [facility] (1 source) Latex Drug allergy (disorder) 02-01-2025 [facility] Repository Medications Current Medications Medication Drug Class(es) Dates Sig (Normalized) Sig (Original) aspirin 81 mg chewable tablet (1 source) Platelet Aggregation Inhibitor, Nonsteroidal Anti-inflammatory Drug Start: 02-02-2025 take 1 tablet by mouth once daily at mealtime atorvastatin 80 mg oral tablet (1 source) HMG-CoA Reductase Inhibitor Start: 02-02-2025 take 1 tablet by mouth at bedtime clopidogrel 75 mg oral tablet (1 source) P2Y12 Platelet Inhibitor Start: 02-02-2025 take 1 tablet by mouth once daily Coram (Nk) (1 source) Start: 02-01-2025 Coram (Nk) Active February 01, 2025 12:00am Completed/Discontinued Medications Medication Drug Class(es) Dates Sig (Normalized) Sig (Original) acetaminophen 325 mg / oxyCODONE hydrochloride 5 mg oral tablet (20 sources) Opioid Agonist Start: 06-17-2017 End: 07-22-2017 take 1 tablet by mouth once daily as needed for pain Oxycodone-Acetamino phen (Percocet) 5-325 mg tablet Discontinued 0 PO 4 TIMES DAILY as needed for pain 30 0 July 01, 2017 July 08, 2017 12:00am July 22, 2017 12:05am Bitten by dog, sequela Open bite of right ear, sequela Open bite of scalp, sequela 5 mg PO 4X/DAY PRN Start: 06-11-2017 End: 07-01-2017 Oxycodone-Acetaminophen 1 TA BLET tablet Discontinued 1 - 2 {tbl} PO 4 TIMES DAILY NEEDED as needed for Pain 40 5 0 June 11, 2017 2:09pm July 01, 2017 10:33am Bitten by dog, sequela Open bite of right ear, sequela Start: 11-25-2016 End: 12-11-2016 take 1 tablet by mouth twice daily as needed for pain PERCOCET 5-325 MG TABS One tablet by andrey th twice daily as needed for pain OXYCODONE-ACETAMINOPHEN [id number] Santos Corona MD Start: 03-14-2016 End: 11-03-2016 take 1 tablet by mouth twice daily as needed for pain PERCOCET 5-325 MG TABS One tablet by andrey th twice daily as needed for pain OXYCODONE-ACETAMINOPHEN [id number] Cher Sandoval LPN Start: 02-20-2016 End: 11-03-2016 take 1 tablet by mouth four times daily as needed for pain PERCOCET 5-325 MG TABS One tablet by andrey th four times daily as needed for pain OXYCODONE-ACETAMINOPHEN [id number] Cher Hayes Sandoval STAFF MIDWIFE/APPRENTICESHIP DIRECTOR amoxicillin 875 mg / clavulanate 125 mg oral tablet (2 sources) Penicillin-class Antibacterial End: 11-03-2016 AUGMENTIN 875-125 MG TABS 1 tab bid AMOXICILLIN-POT CLAVULANATE [id number] Cher Soareson STAFF MIDWIFE/APPRENTICESHIP DIRECTOR ciprofloxacin 500 mg oral tablet (6 sources) Quinolone Antimicrobial Start: 07-21-2017 End: 02-01-2025 Ciprofloxacin Hcl 500 mg tablet Discontinued 500 mg PO TWICE A DAY 28 July 21, 2017 12:00am February 01, 2025 8:58pm administer within 120 minutes prior to surgical incision clindamycin 300 mg oral capsule (8 sources) Lincosamide Antibacterial Start: 06-11-2017 End: 07-01-2017 take 1 capsule by mouth three times daily Clindamycin Hcl 300 MG capsule Discontinued 300 mg PO THREE TIMES A DAY 21 0 June 11, 2017 1:00am July 01, 2017 10:33am Start: 11-25-2016 End: 12-11-2016 take 1 tablet by mouth three times daily CLEOCIN 300 MG CAPS One tablet by mouth three times daily CLINDAMYCIN HCL [id number] Santos Corona MD gabapentin 300 mg oral capsule (6 sources) Anti-epileptic Agent Start: 08-13-2017 End: 02-01-2025 take 1 capsule by mouth twice daily Gabapentin (Neurontin) 300 mg capsule Discontinued 300 mg PO TWICE A DAY 60 0 August 13, 2017 12:00am February 01, 2025 8:58pm sulfamethoxazole 800 mg / trimethoprim 160 mg oral tablet (2 sources) Dihydrofolate Reductase Inhibitor Antibacterial, Sulfonamide Antimicrobial End: 11-03-2016 BACTRIM DS 800-160 MG TABS 1 tab twice daily SULFAMETHOXAZOLE- TRIMETHOPRIM [id number] Cher Hayes Jaime STAFF MIDWIFE/APPRENTICESHIP DIRECTOR Problems Active Problems Problem Classification Problem Date Documented Date Episodic/Chronic Administrative/socia l admission (4 sources) Patient encounter status; Translations: [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-employment examination] 01-05-2025 Episodic Conditions associated with dizziness or vertigo (5 sources) Loss of equilibrium; Translations: [Dizziness and giddiness] Onset: 02-09-2025 02-01-2025 Episodic E Codes: Natural/environment (12 sources) Dog bite - wound; Translations: [Bitten by dog, sequela] 06-19-2017 Episodic Comment on above: multiple dog bite wo unds right medial cheek by commissure, 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 and supra-auricular area and full thickness abrasion posterior area and with exposed cartilage, right temporal scalp, and right forearm External Injury - Natural / Environment (3 sources) Bitten by dog, subsequent encounter; Translations: [Bitten by dog, sequela] Onset: 02-20-2016 03-10-2016 Open wounds of extremities (14 sources) Open bite of right forearm, subsequent encounter; Translations: [Open bite of right forearm, initial encounter] Onset: 02-20-2016 03-10-2016 Episodic Comment on above: multiple dog bite pu ncture wounds right forearm Open wounds of head; neck; and trunk (20 sources) Open bite of right cheek and temporomandibular area, subsequent encounter; Translations: [Open bite of right ear, subsequent encounter] Onset: 02-20-2016 03-10-2016 Episodic Comment on above: 3 cm dog bite wound right temporal scalp 4 cm curvilinear dog bite wound right medial cheek by commissure dog bite wound right ear involving 1.5 cm wound supra-auricular area and 3.5 cm partial amputation superior helix and 3 cm full thickness abrasion posterior area and with exposed cartilage late effect dog bite wound right ear with partial amputation deformity late effect dog bite wound right temporal scalp Other nervous system disorders (4 sources) Slurred speech; Translations: [Slurred speech] 02-01-2025 Episodic Other nervous system disorders (4 sources) Numbness of face; Translations: [Anesthesia of skin] 02-01-2025 Episodic Other nervous system disorders (2 sources) Slurred speech; Translations: [Slurred speech] Onset: 02-09-2025 Episodic Other nervous system disorders (1 source) Anesthesia of skin; Translations: [Anesthesia of skin] Onset: 02-09-2025 Episodic Residual codes; unclassified (4 sources) Tobacco user; Translations: [Tobacco use] 02-01-2025 Episodic Residual codes; unclassified (1 source) Tobacco use; Translations: [Tobacco use] Onset: 02-09-2025 Episodic Screening or history of mental health and substance abuse (7 sources) Ex-smoker; Translations: [Stopped smoking] Onset: 12-11-2016 02-02-2017 Episodic Comment on above: stopped smoking for the upcoming surgery Substance-related disorders (12 sources) Smoker; Translations: [Tobacco smoking behavior - finding] Onset: 02-20-2016 02-27-2016 Chronic Comment on above: F17.200 Transient cerebral ischemia (3 sources) Transient cerebral ischemic attack, unspecified; Translations: [Transient cerebral ischemia] Onset: 02-09-2025 02-02-2025 Chronic Unclassified (1 source) Aftercare ; Translations: [Encounter for other specified surgical aftercare] Onset: 02-20-2016 02-27-2016 Unclassified (1 source) Past or Other Problems Problem Classification Problem Date Documented Da te Episodic/Chronic Unclassified (6 sources) 3 CM DOG BITE WOUND RIGHT TEMPORAL SCALP 11-13-2021 Unclassified (6 sources) 4 CM CURVILINEAR DOG BITE WOUND RIGHT MEDIAL CHEEK 11-13-2021 Comment on above: BY COMMISSURE Unclassified (6 sources) AFTERCARE PLASTIC SURGERY 11-13-2021 Unclassified (6 sources) DOG BITE WOUND RIGHT EAR 11-13-2021 Comment on above: INVOLVING 1.5 CM WOU ND SUPRA-AURICULAR AREA AND 3.5 CM PARTIAL AMPUTATION SUPERIOR HELIX AND 3 CM FULL THICKNESS ABRASION POSTERIOR AREA AND WITH EXPOSED CARTILAGE Unclassified (6 sources) EXCISIONAL DEBRIDEMENT DOGBITE WOUND 11-13-2021 Comment on above: RIGHT EAR INVOLVING 1.5 CM WOUND SUPRA-AURICULAR AREA AND PARTIAL AMPUTATION SUPERIOR HELIX AND 3 CM FULL THICKNESS ABRASION POSTERIOR AREA AND WITH EXPOSED CARTILAGE AND WITH 3.5 CM COMPLEX CLOSURE REPAIR AND EXCISIONAL DEBRIDEMENT CURVILINEAR DOGBITE WOUND RIGHT MEDIAL CHEEK BY COMMISSURE WITH 4 CM COMPLEX CLOSURE REPAIR AND EXCISIONAL DEBRIDEMENT DOGBITE WOUND RIGHT TEMPORAL SCALP WITH 3 CM COMPLEX CLOSURE REPAIR AND EXCISIONAL DEBRIDEMENT MULTIPLE DOGBITE PUNCTURE WOUNDS RIGHT FOREARM INVOLVING THE DISTAL DORSAL ASPECT WITH 2 CM COMPLEX CLOSURE REPAIR AND INVOLVING THE MID DORSAL ULNAR ASPECT EXTENDING ONTO THE MID VOLAR ULNAR ASPECT WITH 10 CM COMPLEX CLOSURE REPAIR 02/12/16 Unclassified (6 sources) MULTIPLE DOG BITE PUNCTURE WOUNDS RIGHT FOREARM 11-13-2021 Unclassified (6 sources) MULTPLE DOG BITE WOUNDS RIGHT MEDIAL CHEEK 11-13-2021 Comment on above: BY COMMISSURE, RIGHT EAR WITH PARTIAL AMPUTATION HELIX AND SUPRA-AURICULAR AREA AND FULL THICKNESS ABRASION POSTERIOR AREA AND WITH EXPOSED CARTILAGE, RIGHT TEMPORAL SCALP, AND RIGHT FOREARM Unclassified (6 sources) OPEN BITE OF RIGHT MEDIAL CHEEK BY COMMISSURE, 11-13-2021 Comment on above: SUBSEQUENT ENCOUNTER Unclassified (6 sources) OPEN DOGBITE WOUND RIGHT MEDIAL CHEEK 11-13-2021 Comment on above: BY COMMISSURE , SEQU CAROL Unclassified (6 sources) SURGICAL PREPARATION DOG BITE RIGHT MEDIAL CHEEK 11-13-2021 Comment on above: BY COMMISSURE WITH E XCISION SCAR CONTOUR INDENTATION DEFORMITY 3.5 CM COMPLEX SECONDARY WOUND CLOSURE 11/18/16 Unclassified (6 sources) open dogbite wound right ear 11-13-2021 Comment on above: with partial amputat ion,sequela Results Test Name Value Interpretation Reference Range Facility Alcohol, Blood (Medical)-Ser umon 02-02-2025 SERUM ETOH < 10.1 Normal <=10.0 [facility] Comment on above: Result Comment: This test is for medical purposes only. The legal definition of intoxication varies according to local law. Performed By: #### L 501.9520, L501.9100, L501.9985 #### [facility] Laboratory [address] [place], [address] Calculated very low density lipoprotein (VLDL) cholesterol measurementOrdered By: Macho Kang on 02-02-2025 Calculated very low density lipoprotein (VLDL) cholesterol measurement 33 mg/dL 5-40 [facility] Discharge Instructionon Discharge Instruction [facility] Medical Records Department [address] [place] [address] Instructions for Home/Discharge Instructions 02/02/25 1325 MR#: [id number] Acct: [id number] Name: NELSON HANNON Rep #: [id number] : 1980 44 From: Jayda Chung MD PCP: Care Physician,No Primary Status:ADM ZHANE Discharge Instructions DC O2, CPAP, BIPAP needs Home O2 Discharge instructions: No Dressing / Incision Discharge Activity: - (Increase activity as tolerated) Follow Up Care Test Results: Test results from this visit will be discussed in further detail at your follow-up appointment, if applicable. Discharge Plan Admission Admit Date/Time: 02/01/25 22:23 Primary Reason for Your Visit: Stroke symptoms Attending Provider: Jayda Chung Primary Care Provider: Care Physician,No Primary Consulting Providers: Johny Patel; Destiney Cardozo; Leela Duckworth; Gogo Chan; Alyssa Wooten; Dedrick Cruz; Marion Gibbs; Prince Lord; Santos Mccormick; Issa Saldivar; Mary Cavanaugh; Julianna Cadet; Lorenzo Adkins; Kaycee Garcia; Evlira Hidalgo; Nay Mi; Kevon Crespo; Claritza Lozano; West Umana; Camila Fabian; Zoie Valenzuela; Macho Rico Instructions Patient Instructions: TIA Dc Additional Instructions / Restrictions: DISCHARGE INSTRUCTIONS PLEASE READ *Please take this with you to your next doctors appointment* - You have been diagnosed with a TIA, also called a mini stroke -You will need to take Plavix and aspirin for 21 days, afterwards you will continue aspirin -You also need to take atorvastatin daily on discharge -These medications were sent to [facility] pharmacy -It will be important that you quit smoking and avoid any illicit substance use -Please follow-up with neurology upon discharge, you can establish with a local neurology office, Dr. Trejo's office, upon discharge. Please call to schedule an appointment for TIA ( [phone]) -Please call your primary care provider's office upon discharge to schedule a hospital follow up within 1 week. -If you do not have a primary care physician of list of local primary care physicians can be provided for you upon discharge. Please ask for this list prior to discharge -For any concerning signs or symptoms please call [phone] or proceed to the nearest emergency department Discharge Orders/Prescriptions Prescriptions: New atorvastatin 80 mg Tablet 80 mg PO QHS 30 Days Qty: 30 1RF clopidogrel 75 mg Tablet 75 mg PO DAILY 21 Days Qty: 21 0RF aspirin 81 mg Tablet,Chewable 81 mg PO DAILYCM 30 Days Qty: 30 1RF Referrals / Follow Up: Dipak Trejo MD [Non-Staff -Ordering Privileges, Neurology] - Within 1 Month Referral Note: -Please follow-up with neurology upon discharge, you can establish with a local neurology office, Dr. Trejo's office, upon discharge. Please call to schedule an appointment for TIA ( [phone]) Care Physician,No Primary [Primary Care Provider, Medical] Referral Note: -If you do not have a primary care physician of list of local primary care physicians can be provided for you upon discharge. Please ask for this list prior to discharge Disposition Disposition (needs filled in before D/C Order can be placed): Home, Self Care 02/02/25 1327 Jayda Chung MD CC: Gogo Chan; Kaycee Garcia; Kevon Crespo; Alyssa Wooten MD; Leela Duckworth MD; Johny Patel MD; Dr. Destiney Cardozo MD; Dr. Macho Rico DO; Dr. Dedrick Cruz MD; Dr. Marion Gibbs MD; Dr. Santos Mccormick MD; Dr. Prince Lord MD; Dr. Issa Saldivar MD; Dr. Mary Cavanaugh DO; Dr. Lorenzo Adkins DO; Dr. Nay Mi MD; Dr. Elvira Hidalgo MD; Dr. Claritza Lozano MD; Dr. West Umana MD; Dr. Camila Fabian MD; Julianna Cadet DO; No Primary Care Physician; Zoie Valenzuela MD Signed Normal [facility] Echocardiogram study reportO rdered By: Amy Pimentel on 02-02-2025 Study report [facility] Cardiovascular Services [address] [place] [address] Echo Complete 02/02/25 0837 MR#: [id number] Acct: [id number] Name: NELSON HANNON Rep #:[id number] : 1980 44 From: Amy Pimentel MD Attending Dr: Dr. Jayda Chung MD Status: ADM ZHANE Ordering Dr: Macho Rico DO Date: 02/01/25 Location: U Sex: F C Admitted: 02/01/25 Reason For Study Reason For Study: TIA/STROKE Procedure This was a 2D Doppler, Color Flow transthoracic echocardiogram. Exam performed portable in patient room. Left Ventricle Normal size and thickness. The left ventricular ejection fraction is 65 %. No evidence for diastolic dysfunction. Right Ventricle Normal right ventricle. Atria The left and right atria are normal. Bubble contrast study is negative for PFO/ASD. Mitral Valve Trivial mitral valve insufficiency. Tricuspid Valve Trivial tricuspid valve insufficiency. Normal pulmonary artery pressure. Aortic Valve Trisinus/trileaflet aortic valve. Pulmonic Valve Trivial pulmonic valve insufficiency. Great Vessels Normal sized aortic root. Pericardium/Pleural No pericardial effusion. Medication Performed a rapid injection of agitated mix of 9 cc saline and 1cc air to assessfor atrial septal defect. MMode/2D Measurements & Calculations LVIDd: 4.4 cm IVSd: 0.91 cm Ao root diam: 3.2 cm LVIDs: 3.0 cm LVPWd: 0.97 cm RVDd: 3.2 cm FS: 31.4 % LAV(MOD-bp): 32.5 ml LVAd ap4: 26.2 cm2 SV(MOD-sp4): 45.4 ml LAV(MOD-bp) Indexed: 20.0 ml/m2 LVLd ap4: 7.8 cm SI(MOD-sp4): 28.0 ml/m2 LAV(MOD-sp2): 30.0 ml EDV(MOD-sp4): 74.7 ml LAV(MOD-sp4): 33.6 ml EDV(sp4-el): 74.6 ml LVAs ap4: 14.8 cm2 LVLs ap4: 6.4 cm ESV(MOD-sp4): 29.4 ml ESV(sp4-el): 29.1 ml EF(MOD-sp4): 60.7 % EF(sp4-el): 61.0 % _ SV(sp4-el): 45.5 ml LA A4 area: 14.8 cm2 LA dimension(2D): 2.9 cm _ RA A4 area: 13.9 cm2 TAPSE: 2.0 cm Time Measurements MV dec time: 0.17 sec Doppler Measurements & Calculations MV E max patricia: 78.2 cm/sec Lat Peak E' Patricia: 14.1 cm/sec Med Peak E' Patricia: 11.8 cm/sec MV A max patricia: 77.8 cm/sec E/E' lat: 5.5 E/E' med: 6.6 MV E/A: 1.0 Ao V2 max: 130.6 cm/sec LV V1 max: 117.5 cm/sec PA V2 max: 75.4 cm/sec Ao max P.8 mmHg LV V1 max P.5 mmHg TR max patricia: 226.2 cm/sec TR max P.5 mmHg ECHO/Echo Complete Interpretation Summary The left ventricular ejection fraction is 65 %. No evidence for diastolic dysfunction. Bubble contrast study is negative for PFO/ASD. Ordering Physician: Macho Rico Performed By: Mirtha Moura RDCS 02/02/25 1116 Date _ Amy Pimentel MD CC: Dr. Macho Rico DO; Dr. Jayda Chung MD; No Primary Care Physician ~ Date Dictated: 02/02/25836 Date Transcribed: 02/02/251115 Vessel Crew Member: Signed [facility] Work Phone: LDL calc ser/plasOrdered By: Macho Kang on 02-02-2025 Cholesterol in LDL [Mass/Vol] 112 mg/dL [facility] Comment on above: Wybasxumkt=806-832 m g/dL & Higher Lswi=745 mg/dL or greaterFriedwald Equation for LDL-C Lipid Profileon 02-02-2025 CHOL:HDL 4.71 Normal [facility] Comment on above: Order Comment: Comme nts: NPO at [place] prior to lipid panel Performed By: #### L 499.0043 #### [facility] [address] [place], [address] Cholesterol [Mass/Vol] 185 mg/dL Normal <=200 [facility] Comment on above: Order Comment: Comme nts: NPO at [place] prior to lipid panel Result Comment: Chol esterol level, Desirable <200 mg/dL Borderline high cholesterol 200-239 mg/dL High cholesterol >=240 mg/dL Recommendations of the NCEP Adult Treatment Panel for the following risk-cutoff thresholds for the [place] population. Performed By: #### L 499.0043 #### [facility] [address] [facility] [address] Cholesterol in HDL [Mass/Vol] 39 mg/dL Low [facility] Comment on above: Order Comment: Comme nts: NPO at [place] prior to lipid panel Result Comment: Sera onal Cholesterol Education Program (NCEP) guidelines: <40 mg/dL: Low HDL-cholesterol (major risk factor for CHD) >= 60 mg/dL: High HDL-cholesterol (negative risk factor for CHD) HDL-cholesterol is affected by a number of factors, e.g. smoking, exercise, hormones, sex and age. Performed By: #### L 499.0043 #### [facility] [address] [facility] [address] Cholesterol in LDL [Mass/Vol] 112 mg/dL Normal [facility] Comment on above: Order Comment: Comme nts: NPO at [place] prior to lipid panel Result Comment: Bord rgpccm=361-004 mg/dL Higher Thau=554 mg/dL or greater Friedwald Equation for LDL-C Performed By: #### L 499.0043 #### [facility] [address] [facility] [address] Cholesterol in VLDL [Mass/Vol] 33 mg/dL Normal 5-40 [facility] Comment on above: Order Comment: Comme nts: NPO at [place] prior to lipid panel Performed By: #### L [id number] #### [facility] [address] [facility] [address] Triglyceride [Mass/Vol] 167 mg/dL Normal [facility] Comment on above: Order Comment: Comme nts: NPO at [place] prior to lipid panel Result Comment: The drugs N-Acetylcysteine and Metamizole may falsely depress this assay. Normal range: <150 mg/dL Borderline High: 150-199 mg/dL High: 200-499 mg/dL Very High: >500 mg/dL Performed By: #### L 499.0043 #### [facility] [address] [place], [place], [address] STROKE Brain/Head without Co nton 02-02-2025 STROKE Brain/Head without Cont [facility] Imaging Services [address] [place] [address] STROKE Brain/Head without Cont MR#: [id number] Acct: [id number] Name: NELSON HANNON Rep #: [id number] : 1980 F 44 From: Luca Douglas MD PCP: Care Physician,No Primary Status: ADM ZHANE Study: STROKE Brain/Head without Cont Date of Exam: Exam# [id number] Ordering Dr: Macho Rico DO PROCEDURE: STROKE BRAIN/HEAD WITHOUT CONT 02/02/2025 REASON FOR EXAM: DIZZINESS, SLURRED SPEECH TECHNIQUE: Procedure Code: CTBR.ST Modality: CT Procedure: STROKE BRAIN/HEAD WITHOUT CONT Coronal and Sagittal reconstruction series were provided. One or more dose reduction techniques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 [facility] Comment on above: Result Comment: Norm al < 5.7 % Prediabetic 5.7 - 6.4 % Diabetic >or= 6.5 % Please note range changes. Performed By: #### L 501.9521, L501.9100, L501.9985 #### [facility] [address] [place], [address] Hemoglobin A1c percentageOrd ered By: Macho Kang on 02-01-2025 HbA1c (Bld) [Mass fraction] 5.5 % <5.7 [facility] Comment on above: Normal < 5.7 % Predi abetic 5.7 - 6.4 % Diabetic >or= 6.5 % Please note range changes. Hemoglobin measurementOrdere d By: Darby Goldstein on 02-01-2025 Hemoglobin (Bld) [Mass/Vol] 13.3 g/dL 12.0-15.0 [facility] Immature granulocytes/100 WB C Auto (Bld)Ordered By: Darby Goldstein on 02-01-2025 Immature granulocytes/100 WBC (Bld) 0.200 % 0.0-0.9 [facility] Comment on above: IG% - Immature Granu locytes (promyelocytes, myelocytes and metamyelocytes) > 1% indicates that a LEFT SHIFT is Present. International normalized rat io (INR) calculationOrdered By: Darby Goldstein on 02-01-2025 INR Coag (Bld) [Relative time] 1.0 {INR} [facility] L501.4021on 02-01-2025 Trop T High Sen 7 ng/L Normal <=14 [facility] Comment on above: Performed By: #### L 300.3900, L500.2500, L300.4310, L100.0100, L501.4021 #### [facility] [address] [place], [address] MCV (mean corpuscular volume ) determinationOrdered By: Darby Goldstein on 02-01-2025 MCV (RBC) [Entitic vol] 89.5 fL 81-99 [facility] Mean corpuscular hemoglobin (MCH) determinationOrdered By: Darby Goldstein on 02-01-2025 MCH (RBC) [Entitic mass] 31.7 pg 27.0-32.0 [facility] Mean corpuscular hemoglobin concentration (MCHC) determinationOrdered By: Darby Goldstein on 02-01-2025 MCHC (RBC) [Mass/Vol] 35.4 g/dL 32-36 [facility] Mean platelet volume determi nationOrdered By: Darby Goldstein on 02-01-2025 Platelet mean volume (Bld) [Entitic vol] 9.5 fL 6.2-12.0 [facility] Monocyte percentageOrdered B y: Darby Goldstein on 02-01-2025 Monocytes/100 WBC (Bld) 7.0 % 0-10 [facility] Neutrophil percentageOrdered By: Darby Goldstein on 02-01-2025 Neutrophils/100 WBC (Bld) 52.8 % 47-70 [facility] No Panel InformationOrdered By: Darby Goldstein on 02-01-2025 Urine Buprenorphine Qualitative Negative < 200 ng/mL [facility] Urine Oxycodone Screen Negative < 100 ng/mL [facility] Nucleated red blood cell per centageOrdered By: Darby Goldstein on 02-01-2025 Nucleated RBC/100 WBC (Bld) [Ratio] 0 % 0-5 [facility] Partial Thromboplast Timeon 02-01-2025 aPTT Coag (Bld) [Time] 26.5 s Normal 24.1-36.2 [facility] Comment on above: Performed By: #### L 300.3900, L500.2500, L300.4310, L100.0100, L501.4021 #### [facility] [address] [place], [address] Platelet countOrdered By: Carlos Goldstein on 02-01-2025 Platelets (Bld) [#/Vol] 312 10*3/uL 150-450 [facility] Potassium measurement (mass/ volume)Ordered By: Darby Goldstein on 02-01-2025 Potassium (Unsp spec) [Mass/Vol] 3.6 mmol/L 3.3-5.1 [facility] Prothrombin Time w/INRon INR Coag (PPP) [Relative time] 1.0 {INR} Normal [facility] Comment on above: Performed By: #### L 300.3900, L500.2500, L300.4310, L100.0100, L501.4021 #### [facility] [address] [place], [address] PT Coag (PPP) [Time] 13.5 s Normal 11.7-14.9 [facility] Comment on above: Performed By: #### L 300.3900, L500.2500, L300.4310, L100.0100, L501.4021 #### [facility] [address] [place], [address] Prothrombin timeOrdered By: Darby Goldstein on 02-01-2025 PT Coag (PPP) [Time] 13.5 s 11.7-14.9 [facility] Quantitative urine opiates m easurementOrdered By: Darby Goldstein on 02-01-2025 Opiates Ql (U) Negative < 300 ng/mL [facility] RBC Auto (Bld) [#/Vol]Ordere d By: Darby Goldstein on 02-01-2025 RBC (Bld) [#/Vol] 4.20 10*6/uL 4.2-5.4 [facility] STROKE Brain/Head without Co nton 02-01-2025 STROKE Brain/Head without Cont [facility] Services [address] [place], [place] [address] STROKE Brain/Head without Cont MR#: [id number] Acct: [id number] Name: NELSON HANNON Rep #: [id number] : 1980 F 44 From: Jamie Wu MD PCP: Care Physician,No Primary Status: PRE ER Study: STROKE Brain/Head without Cont Date of Exam: Exam# [id number] Ordering Dr: Darby Goldstein MD PROCEDURE: STROKE CT BRAIN/HEAD WITHOUT CONT; STROKE CTA HEAD AND NECK W/CON 02/01/2025 REASON FOR EXAM: NEURO DEFICIT, ACUTE STROKE SUSPECTED TECHNIQUE: Procedure Code: CTBR.ST; CTCTA.ST.HN Modality: CT Procedure: STROKE BRAIN/HEAD WITHOUT CONT; STROKE CTA HEAD AND NECK W/CON Coronal and Sagittal reconstructions were provided. 3D post processing was performed. 100 cc of Isovue 370 intravenous contrast was administered. One or more dose reduction techniques were used (e.g., Automated exposure control, adjustment of the mA and/or kV according to patient size, use of iterative reconstruction technique. RADIATION DOSE SUMMARY: Head: DLP: 872.68 mGycm CTA head/neck: DLP: 964.1 mGycm COMPARISON: None available. FINDINGS: CTA HEAD: Patent intracranial arterial vasculature. No large vessel occlusion, flow-limiting stenosis, saccular aneurysm, or vascular malformation identified. Dural venous sinuses appear patent. CTA NECK: Conventional aortic arch branching. Bilateral cervical carotid and codominant vertebral arteries are patent without significant stenosis. No aneurysm or dissection. NONCONTRAST CT HEAD: No acute intracranial hemorrhage, extra-axial collection, mass effect or evidence of acute infarct. Ventricles and subarachnoid spaces are normal in size. Unremarkable orbits. Intact skull base and calvarium. Mild scattered peripheral mucosal thickening in the paranasal sinuses. No mastoid effusions. CT/STROKE Brain/Head without Cont IMPRESSION: No acute intracranial abnormality. Normal CTA of the head and neck. Findings communicated with provider Darby Goldstein 02/01/2025 at 7:55 p.m. TON CYLINDER INSPECTOR. Reading Location: [facility] CC: Dr. Darby Goldstein MD; No Primary Care Physician Vessel Crew Member: Signed Normal [facility] STROKE CTA Head AND Neck W/C onon 02-01-2025 STROKE CTA Head AND Neck W/Con [facility] Imaging Services [address] [place] [address] STROKE CTA Head AND Neck W/Con MR#: [id number] Acct: [id number] Name: NELSON HANNON Rep #: [id number] : 1980 F 44 From: Jamie Wu MD PCP: Care Physician,No Primary Status: PRE ER Study: STROKE CTA Head AND Neck W/Con Date of Exam: Exam# [id number] Ordering Dr: Darby Goldstein MD PROCEDURE: STROKE CT BRAIN/HEAD WITHOUT CONT; STROKE CTA HEAD AND NECK W/CON 02/01/2025 REASON FOR EXAM: NEURO DEFICIT, ACUTE STROKE SUSPECTED TECHNIQUE: Procedure Code: CTBR.ST; CTCTA.ST.HN Modality: CT Procedure: STROKE BRAIN/HEAD WITHOUT CONT; STROKE CTA HEAD AND NECK W/CON Coronal and Sagittal reconstructions were provided. 3D post processing was performed. 100 cc of Isovue 370 intravenous contrast was administered. One or more dose reduction techniques were used (e.g., Automated exposure control, adjustment of the mA and/or kV according to patient size, use of iterative reconstruction technique. RADIATION DOSE SUMMARY: Head: DLP: 872.68 mGycm CTA head/neck: DLP: 964.1 mGycm COMPARISON: None available. FINDINGS: CTA HEAD: Patent intracranial arterial vasculature. No large vessel occlusion, flow-limiting stenosis, saccular aneurysm, or vascular malformation identified. Dural venous sinuses appear patent. CTA NECK: Conventional aortic arch branching. Bilateral cervical carotid and codominant vertebral arteries are patent without significant stenosis. No aneurysm or dissection. NONCONTRAST CT HEAD: No acute intracranial hemorrhage, extra-axial collection, mass effect or evidence of acute infarct. Ventricles and subarachnoid spaces are normal in size. Unremarkable orbits. Intact skull base and calvarium. Mild scattered peripheral mucosal thickening in the paranasal sinuses. No mastoid effusions. CT/STROKE CTA Head AND Neck W/Con IMPRESSION: No acute intracranial abnormality. Normal CTA of the head and neck. Findings communicated with provider Darby Goldstein 02/01/2025 at 7:55 p.m. TON CYLINDER INSPECTOR. Reading Location: [facility] CC: Dr. Darby Goldstein MD; No Primary Care Physician Vessel Crew Member: Signed Normal [facility] Screening urine fentanyl roro surementOrdered By: Darby Goldstein on 02-01-2025 fentaNYL Screen Ql (U) Negative <5 ng/mL [facility] Comment on above: CONFIRMATORY TESTING FOR ALL POSITIVE URINE DRUG SCREENRESULTS WILL ONLY BE SENT OUT UPON PHYSICIAN ORDER. [employer] Urine Drug Screen methods provide only preliminaryanalytical test results. A more specific alternate chemicalmethod must be used in order to obtain a confirmedanalytical result. Gas chromatography/mass spectrometery(GC/MS) is the preferred confirmatory method. Clinicalconsideration and professional judgement should be appliedto any drug of abuse test result, particularly whenpreliminary positive results are used. Urine TCA testing must be ordered separately. Use test mnemonic: [facility] Serum creatinine measurement (mass/volume)Ordered By: Darby Goldstein on 02-01-2025 Creatinine [Mass/Vol] 0.75 mg/dL 0.70-1.20 [facility] Serum glucose measurement (m ass/volume)Ordered By: Darby Goldstein on 02-01-2025 Glucose [Mass/Vol] 102 mg/dL High 70-99 [facility] Serum or plasma calcium chaz urement (mass/volume)Ordered By: Darby Goldstein on 02-01-2025 Calcium [Mass/Vol] 9.4 mg/dL 7.6-11.0 [facility] Serum or plasma ethanol chaz urement (mass/volume)Ordered By: Macho Kang on 02-01-2025 Ethanol [Mass/Vol] mg/dL <10.1 [facility] Comment on above: This test is for med ical purposes only. The legal definition of intoxication varies according to local law. Serum or plasma urea nitroge n measurement (mass/volume)Ordered By: Darby Goldstein on 02-01-2025 Urea nitrogen [Mass/Vol] 18 mg/dL 4-19 [facility] Sodium levelOrdered By: Sukhjinder Goldstein on 02-01-2025 Sodium [Moles/Vol] 140 mmol/L 133-145 [facility] TSH DL <= 0.005 mIU/L QnOrde red By: Macho Kang on 02-01-2025 TSH Qn 0.873 uIU/mL 0.300-4.200 [facility] Troponin T HS 2 HRon 025 Trop T High Sen < 6 Normal <=14 [facility] Comment on above: Performed By: #### L 499.0042 #### [facility] [address] [facility] [address] Troponin T.cardiac [Mass/vol ume] in Serum or Plasma by High sensitivity methodOrdered By: Darby Goldstein on 02-01-2025 Troponin T.cardiac High sensitivity method [Mass/Vol] < 6 ng/L <14 [facility] Troponin T.cardiac High sensitivity method [Mass/Vol] 7 ng/L <14 [facility] Urine Drug Screen (VISTA)on 02-01-2025 AMPHETAMINES Positive Normal <1000 ng/mL [facility] Comment on above: Result Comment: If c onfirmation testing is needed, a separate order will be required to send out testing to the reference laboratory. Performed By: #### L 505.5000 #### [facility] [address] [place], [address] BARBITIURATES Negative Normal < 200 ng/mL [facility] Comment on above: Performed By: #### L 505.5000 #### [facility] [address] [place], [place], [id number] BENZODIAZIPINE Negative Normal < 200 ng/mL [facility] Comment on above: Performed By: #### L 505.5000 #### [facility] [address] [place], [place], [id number] BUP Ur Drug Scr Negative Normal < 200 ng/mL [facility] Comment on above: Performed By: #### L 505.5000 #### [facility] [address] [place] [id number] COCAINE Positive Normal < 300 ng/mL [facility] Comment on above: Result Comment: If c onfirmation testing is needed, a separate order will be required to send out testing to the reference laboratory. Performed By: #### L 505.5000 #### [facility] [address] [place], [address] Fentanyl Negative Normal <5 ng/mL [facility] Comment on above: Result Comment: CONF IRMATORY TESTING FOR ALL POSITIVE URINE DRUG SCREEN RESULTS WILL ONLY BE SENT OUT UPON PHYSICIAN ORDER. [employer] Urine Drug Screen methods provide only preliminary analytical test results. A more specific alternate chemical method must be used in order to obtain a confirmed analytical result. Gas chromatography/mass spectrometery (GC/MS) is the preferred confirmatory method. Clinical consideration and professional judgement should be applied to any drug of abuse test result, particularly when preliminary positive results are used. Urine TCA testing must be ordered separately. Use test mnemonic: [facility] Performed By: #### L 505.5000 #### [facility] [address] [place], [place], [id number] METHADONE Negative Normal < 300 ng/mL [facility] Comment on above: Performed By: #### L 505.5000 #### [facility] [address] [place], [address] OPIATES Negative Normal < 300 ng/mL [facility] Comment on above: Performed By: #### L 505.5000 #### [facility] [address] [place], [place], [id number] OXYCODONE Negative Normal < 100 ng/mL [facility] Comment on above: Performed By: #### L 505.5000 #### [facility] [address] [place], [place], [id number] PCP Negative Normal < 25 ng/mL [facility] Comment on above: Performed By: #### L 505.5000 #### [facility] [address] [place], [place], [address] THC Positive Normal < 50 ng/mL [facility] Comment on above: Result Comment: If c onfirmation testing is needed, a separate order will be required to send out testing to the reference laboratory. Performed By: #### L 505.5000 #### [facility] [address] [place], [place], [id number] Urine benzodiazepine levelOr dered By: Darby Goldstein on 02-01-2025 Benzodiazepines Ql (U) Negative < 200 ng/mL [facility] Urine cocaine levelOrdered B y: Darby Goldstein on 02-01-2025 Cocaine Ql (U) Positive < 300 ng/mL [facility] Comment on above: If confirmation test ing is needed, a separate order will be required to send out testing to the reference laboratory. Urine rooap-7-saedmrektinknn abinol (THC) measurementOrdered By: Darby Goldstein on 02-01-2025 Cannabinoids Screen Ql (U) Positive < 50 ng/mL [facility] Comment on above: If confirmation test ing is needed, a separate order will be required to send out testing to the reference laboratory. Urine phencyclidine (PCP) de tectionOrdered By: Darby Goldstein on 02-01-2025 Phencyclidine Ql (U) Negative < 25 ng/mL [facility] White blood cell (WBC) count Ordered By: Darby Goldstein on 02-01-2025 WBC (Bld) [#/Vol] 9.8 10*3/uL 4.4-11.0 [facility] Office Visit Reporton 2024 Office Visit Report [facility] [address] [address] OFFICE VISIT Date of Service: 01/05/25 MR#: [id number] Acct: [id number] Patient: NELSON HANNON Rep #: [id number] : 1980 Provider: JUAN JOSE Daniel Age/Sex: 44/F Location[place] [facility] Status: Signed Intake Intake Visit 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 Chief Complaint: dog bite Allergies latex Allergy (Verified 07/22/17 11:32) Hives Office Procedures [facility] Billing Sheet Testing Breath Alcohol Test Pre-Employment: Yes Pre-Employment Drug Screen: Yes Pre-Employment PE: Yes 01/12/25 1552 Date Michelet INGRAM Cosigner Signature: Date (if applicable) CC: Normal [facility] Urgent Care Visit Reporton 0 01-05-2025 Urgent Care Visit Report [facility] [address], [address] [place] [address] OFFICE VISIT Date of Service: 01/05/25 MR#: [id number] Acct: [id number] Name: NELSON HANNON Rep #: [id number] : 1980 Provider: JUAN JOSE Daniel Age/Sex: 44/F Location[place] [facility] Status: Signed Intake Intake Visit Reasons: PE/NON DOT 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/EVGENY 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 Chief Complaint: dog bite Allergies latex Allergy (Verified 07/22/17 11:32) Hives [facility] Medical History AFTERCARE PLASTIC SURGERY MULTPLE DOG BITE WOUNDS RIGHT MEDIAL CHEEK DOG BITE WOUND RIGHT EAR 4 CM CURVILINEAR DOG BITE WOUND RIGHT MEDIAL CHEEK MULTIPLE DOG BITE PUNCTURE WOUNDS RIGHT FOREARM 3 CM DOG BITE WOUND RIGHT TEMPORAL SCALP Smoker Bitten by dog, subsequent encounter Open bite of right ear, subsequent encounter OPEN BITE OF RIGHT MEDIAL CHEEK BY COMMISSURE, Open bite of right forearm, subsequent encounter Open bite of scalp, subsequent encounter Bitten by dog, sequela OPEN DOGBITE WOUND RIGHT MEDIAL CHEEK open dogbite wound right ear Past use of tobacco Surgical History (Updated 11/13/21 @ 14:53 by Shira David) SURGICAL PREPARATION DOG BITE RIGHT MEDIAL CHEEK EXCISIONAL DEBRIDEMENT DOGBITE WOUND Family History (Updated 05/13/17 @ 10:24 by Cher Sandoval) Unknown No problems noted. Social History (Updated 08/13/17 @ 00:[address] Santos Corona MD) Smoking Status: Current some day smoker second hand exposure: Yes alcohol intake: former substance use type: marijuana what type of physical activity do you participate in: other seatbelt use: always additional social history: SUN EXPOSURE: FREQUENTLY HPI HPI Chief Complaint: dog bite Details: NELSON HANNON, is a 44 F who presents to the office today for preemployment physical. Please see corresponding scanned documents with today's date. 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 Diagnoses 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-employment health screening examination Z02.1 Assessment and Plan Assessment and Plan (1) 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-employment health screening examination: Status: Acute 01/05/25 1603 Date Michelet Hanna Signature: Date (if applicable) CC: Normal [facility] Urgent Care Visit Reporton 0 01-03-2025 Urgent Care Visit Report [facility] [address], [address] [place] [address] OFFICE VISIT Date of Service: 01/03/25 MR#: [id number] Acct: [id number] Name: NELSON HANNON Rep #: [id number] : 1980 Provider: JUAN JOSE Davis Age/Sex: 44/F Location[place] [facility] Status: Signed Intake Intake Visit Reasons: PE/NON DOT PHYSICAL/EVGENY BRUSH Chief Complaint: dog bite Allergies latex Allergy (Verified 07/22/17 11:32) Hives [facility] Medical History [facility] MULTPLE DOG BITE WOUNDS RIGHT MEDIAL CHEEK DOG BITE WOUND RIGHT EAR 4 CM CURVILINEAR DOG BITE WOUND RIGHT MEDIAL CHEEK MULTIPLE DOG BITE PUNCTURE WOUNDS RIGHT FOREARM 3 CM DOG BITE WOUND RIGHT TEMPORAL SCALP Smoker Bitten by dog, subsequent encounter Open bite of right ear, subsequent encounter OPEN BITE OF RIGHT MEDIAL CHEEK BY COMMISSURE, Open bite of right forearm, subsequent encounter Open bite of scalp, subsequent encounter Bitten by dog, sequela OPEN DOGBITE WOUND RIGHT MEDIAL CHEEK open dogbite wound right ear Past use of tobacco Surgical History (Updated 11/13/21 @ 14:53 by Shira David) SURGICAL PREPARATION DOG BITE RIGHT MEDIAL CHEEK EXCISIONAL DEBRIDEMENT DOGBITE WOUND Family History (Updated 05/13/17 @ 10:24 by Cher Sandoval) Unknown No problems noted. Social History (Updated 08/13/17 @ 00:[address] Santos Corona MD) Smoking Status: Current some day smoker second hand exposure: Yes alcohol intake: former substance use type: marijuana what type of physical activity do you participate in: other seatbelt use: always additional social history: SUN EXPOSURE: FREQUENTLY HPI HPI Chief Complaint: dog bite Details: NELSON HANNON, carson a 44 F who presents to the office today for N O SHOW Coding Level of Care Code No Charge 01/03/25 1541 Date García INGRAM Cosigner Signature: Date (if applicable) CC: Normal [facility] Office Visit: postop surgery 11/18/1602-11-2017 Documentation of current medications (procedure) T Invalid Interpretation Code [facility] Work Phone: [phone] Documentation of current medications (procedure) Done Invalid Interpretation Code [facility] Work Phone: [phone] Fall risk assessment No Invalid Interpretation Code [facility] Work Phone: [phone] Tobacco smoking status NHIS Never Invalid Interpretation Code [facility] Work Phone: [phone] Tobacco use CPHS Former smoker Invalid Interpretation Code [facility] Work Phone: [phone] Microbiology: Culture, Fungu s w/ [id number] 12-18-2016 CUFST . Invalid Interpretation Code [facility] Work Phone: [phone] Office Visit: postop surgery 11/18/1611-25-2016 Smoking cessation education (procedure) yes Invalid Interpretation Code [facility] Work Phone: [phone] Lab Report: ,Urineo n 11-18-2016 HCG.beta subunit ( test) Ql (U) Negative Invalid Interpretation Code [facility] Work Phone: [phone] Lab Report: CBC W/Diff, Auto matedon 02-13-2016 Absolute Neut 7.8 X10 3/UL High 2.0-7.7 [facility] Work Phone: [phone] Basophils/100 WBC Auto (Bld) 0.1 % Invalid Interpretation Code 0-1 [facility] Work Phone: [phone] Eosinophils/100 leukocytes 0.1 % Invalid Interpretation Code 0-5 [facility] Work Phone: [phone] Erythrocyte distribution width Auto Ratio (RBC) 12.8 % Invalid Interpretation Code 11.6-14.6 [facility] Work Phone: [phone] Erythrocytes (RBC) 3.46 10*6/uL Low 4.2-5.4 [facility] Work Phone: [phone] Hematocrit (HCT) 33.0 % Low 37-47 [facility] Work Phone: [phone] Hemoglobin mass conc (Bld) 11.1 g/dL Low 12.0-15.0 [facility] Work Phone: [phone] Immature granulocytes/100 WBC (Bld) 0.100 % Invalid Interpretation Code 0.0-0.9 [facility] Work [phone] Lymphocytes 0.86 X10 3/UL Invalid Interpretation Code 0.83-4.51 [facility] Work Phone: [phone] Lymphocytes/100 leukocytes 9.4 % Low 19-41 [facility] Work Phone: [phone] MCH 32.1 pg High 27.0-32.0 [facility] Work Phone: [phone] MCHC mass conc (RBC) 33.6 G/GL Invalid Interpretation Code 32-36 [facility] Work Phone: [phone] MCV 95.4 fL Invalid Interpretation Code 81-99 [facility] Work Phone: [phone] Monocytes/100 leukocytes 4.8 % Invalid Interpretation Code 0-10 [facility] Work Phone: [phone] Neutrophils/100 WBC Auto (Bld) 85.5 % High 47-70 [facility] Work Phone: [phone] Platelets 207 10*3/mm3 Invalid Interpretation Code 150-450 [facility] Work Phone: [phone] PMV by Shelbie 11.0 fL Invalid Interpretation Code 6.2-12.0 [facility] Work Phone: [phone] RDW SD 42.9 fL Invalid Interpretation Code 35.1-43.9 [facility] Work Phone: [phone] WBC (Leukocytes) 9.1 10*3/uL Invalid Interpretation Code 4.4-11.0 [facility] Work Phone: [phone] Lab Report: Basic Metabolic Profile (BMP)on 02-12-2016 Anion gap 7 mmol/L Invalid Interpretation Code 5-15 [facility] Work Phone: [phone] BUN/Creatinine Ratio 13.7 RATIO Invalid Interpretation Code 10-20 [facility] Work Phone: [phone] Calcium 7.5 mg/dL Low 8.5-10.1 [facility] Work Phone: [phone] Chloride 109 mmol/L High 98-107 [facility] Work Phone: [phone] CO2 24.0 mmol/L Invalid Interpretation Code 21.0-32.0 [facility] Work Phone: [phone] Creatinine 0.66 mg/dL Invalid Interpretation Code 0.55-1.20 [facility] Work Phone: [phone] Creatinine 94.10 mL/min Invalid Interpretation Code [facility] Work Phone: [phone] eGFR (non-black) 132 mL/min/{1.73_m2} Invalid Interpretation Code >60 [facility] Work Phone: [phone] eGFR (non-black) 109 mL/min/{1.73_m2} Invalid Interpretation Code >60 [facility] Work Phone: [phone] Glucose mass conc 107 mg/dL Invalid Interpretation Code 70-110 [facility] Work Phone: [phone] Potassium molar conc 3.9 mmol/L Invalid Interpretation Code 3.5-5.1 [facility] Work Phone: [phone] Sodium 140 mmol/L Invalid Interpretation Code 136-145 [facility] Work Phone: [phone] Urea nitrogen 9 mg/dL Invalid Interpretation Code 7-18 [facility] Work Phone: [phone] Lab Report: Liver Profileon 02-12-2016 Alanine aminotransferase (ALT) 13 U/L Invalid Interpretation Code 12-78 [facility] Work Phone: [phone] Albumin 3.4 g/dL Invalid Interpretation Code 3.4-5.0 [facility] Work Phone: [phone] Alkaline phosphatase (ALP) 45 U/L Low 50-136 [facility] Work Phone: [phone] Aspartate aminotransferase (AST) 19 U/L Invalid Interpretation Code 15-37 [facility] Work Phone: [phone] Bilirubin (direct) 0.07 mg/dL Invalid Interpretation Code 0.00-0.30 [facility] Work Phone: [phone] Bilirubin (total) 0.30 mg/dL Invalid Interpretation Code 0.20-1.00 [facility] Work Phone: [phone] Globulin 2.5 g/dL Invalid Interpretation Code 2.3-3.5 [facility] Work Phone: [phone] Protein 5.9 g/dL Low 6.4-8.2 [facility] Work Phone: [phone] Lab Report: Urine Drug Scree n (VISTA)on 02-12-2016 barbiturates screen, urine Negative Invalid Interpretation Code < 200 ng/mL [facility] Work Phone: [phone] ECSTACY Negative Invalid Interpretation Code < 500 ng/mL [facility] Work Phone: [phone] PCP Negative Invalid Interpretation Code < 25 ng/mL [facility] Work Phone: [phone] Urine, amphetamines presence Positive High <1000 ng/mL [facility] Work Phone: [phone] Urine, benzodiazepines presence Negative Invalid Interpretation Code < 200 ng/mL [facility] Work Phone: [phone] Urine, cocaine presence Negative Invalid Interpretation Code < 300 ng/mL [facility] Work Phone: [phone] Urine, methadone presence Negative Invalid Interpretation Code < 300 ng/mL [facility] Work Phone: [phone] Urine, opiates presence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 IMPRESSION: 1. No acute intracranial abnormality Stroke Alert: As above The critical findings in the findings and impression above were relayed directlyby me by telephone to AUNG Centeno in the PCU on 02/02/2025 at 11:21 am with readback verification. Reading Location: [facility] D/C Instructions DC O2, CPAP, BIPAP Needs Home O2 Discharge instructions: No Meaningful Use Info Meaningful Use Meaningful Use Diagnoses (Choose all that apply): Ischemic CVA CVA Therapy Assessed for PT,OT and/or ST?: Yes Ischemic Stroke Antithrombotic order at d/c?: Yes Dx of Atrial fib/flutter?: No Statins at discharge?: Yes If patient is 75 or younger, pt will be discharged on HIGH intensity statin.: Yes Primary Dx Acute Ischemic CVA?: Yes IV thrombolytic ordered during stay?: No Reason IV thrombolytic not ordered: Treatment not Indicated Discharge Plan Admission Admit Date/Time: 02/01/25 22:23 Primary Reason for Your Visit: Stroke symptoms Attending Provider: Jayda Chung Primary Care Provider: Care Physician,No Primary Consulting Providers: Johny Patel; Destiney Cardozo; Leela Duckworth; Gogo Chan; Alyssa Wooten; Dedrick Cruz; Marion Gibbs; Prince Lord; Santos Mccormick; Issa Saldivar; Mary Cavanaugh; Julianna Cadet; Lorenzo Adkins; Kaycee Garcia; Elvira Hidalgo; Nay Mi; Kevon Crespo; Claritza Lozano; [place]; Camila Fabian; Zoie Valenzuela; Macho Rico Instructions Patient Instructions: TIA Dc Additional Instructions / Restrictions: DISCHARGE INSTRUCTIONS PLEASE READ *Please take this with you to your next doctors appointment* - You have been diagnosed with a TIA, also called a mini stroke -You will need to take Plavix and aspirin for 21 days, afterwards you will continue aspirin -You also need to take atorvastatin daily on discharge -These medications were sent to [facility] pharmacy -It will be important that you quit smoking and avoid any illicit substance use -Please follow-up with neurology upon discharge, you can establish with a local neurology office, Dr. Trejo's office, upon discharge. Please call to schedulean appointment for TIA ) -Please call your primary care provider's office upon discharge to schedule a hospital follow up within 1 week. -If you do not have a primary care physician of list of local primary care physicians can be provided for you upon discharge. Please ask for this list prior to discharge -For any concerning signs or symptoms please call 911 or proceed to the nearest emergency department Discharge Orders/Prescriptions Prescriptions: New atorvastatin 80 mg Tablet 80 mg PO QHS 30 Days Qty: 30 1RF clopidogrel 75 mg Tablet 75 mg PO DAILY 21 Days Qty: 21 0RF aspirin 81 mg Tablet,Chewable 81 mg PO DAILYCM 30 Days Qty: 30 1RF Referrals / Follow Up: Dipak Trejo MD [Non-Staff -Ordering Privileges, Neurology] - Within 1 Month Referral Note: -Please follow-up with neurology upon discharge, you can establish with a local neurology office, Dr. Trejo's office, upon discharge. Please call to schedule an appointment for TIA ( [phone]) Care Physician,No Primary [Primary Care Provider, Medical] Referral Note: -If you do not have a primary care physician of list of local primary care physicians can be provided for you upon discharge. Please ask for this list prior to discharge Hung Tillman C, PROFESSIONAL APPLICATION DESIGNER-C [[facility], [facility]] - 02/21/25 2:00pm Disposition Disposition (needs filled in before D/C Order can be placed): Home, Self Care Charges/Coding Visit Charges Inpatient E&M: 84503 Disch Hosp >30min 02/02/25 1616 <Electronically signed by Jayda Chung MD> Cosigner Signature (if applicable): CC: Dr. Jayda Chung MD; No Primary Care Physician~ Signed [facility] Work Phone: Evaluation noteNo assessment information available [facility] Work Phone: Hospital Discharge instructionsAdditional Instructions DISCHARGE INSTRUCTIONS PLEASE READ *Please take this with you to your next doctors appointment* - You have been diagnosed with a TIA, also called a mini stroke -You will need to take Plavix and aspirin for 21 days, afterwards you will continue aspirin -You also need to take atorvastatin daily on discharge -These medications were sent to [facility] pharmacy -It will be important that you quit smoking and avoid any illicit substance use -Please follow-up with neurology upon discharge, you can establish with a local neurology office, Dr. Trejo's office, upon discharge. Please call to schedule an appointment for TIA ) -Please call your primary care provider's office upon discharge to schedule a hospital follow up within 1 week. -If you do not have a primary care physician of list of local primary care physicians can be provided for you upon discharge. Please ask for this list prior to discharge -For any concerning signs or symptoms please call 911 or proceed to the nearest emergency department Date of Discharge: 02/02/25[facility] Work Phone: Reason for referral (narrative)No reason for referral information availableR[facility] Work Phone: Summary Purpose Family History Relationship Condition Age at Onset Recorded Date/T natalio Unknown Family History?No pe rtinent history Unknown February 13, 2016 3:41pm Family History?No pe rtinent history Unknown June 11, 2017 8:01am Advance Directives Advance Directive Response Recorded Date/ Time Advance Directives No May 8:01am Advance Directive Response Recorded Date/ Time Do you have a Healthcare Power of Theoretical Physicist? No February 01, 2025 8:35pm Advance Directives No May 8:01am Advance Directive Response Recorded Date/ Time Do you have a Healthcare Power of Theoretical Physicist? No February 01, 2025 10:55pm Advance Directives No May 8:01am Chief Complaint and Reason for Visit Chief Complaint Admit Date PE/NON DOT PHYSICAL/EVGENY BRUSH 2024 3:40pm PE/NON DOT DRUG & BAT/EVGENY BRUSH/ NO SHOW January 03, 2025 3:41pm Chief Complaint Admit Date PE/NON DOT PHYSICAL/EVGENY BRUSH 2024 3:40pm PE/NON DOT DRUG & BAT/EVGENY BRUSH/ NO SHOW January 03, 2025 3:41pm PE/NON DOT PHYSICAL/EVGENY BRUSH Septem 2024 3:13pm Chief Complaint Admit Date PE/NON DOT PHYSICAL/EVGENY BRUSH Septem 2024 3:40pm PE/NON DOT DRUG & BAT/EVGENY BRUSH/ NO SHOW January 03, 2025 3:41pm PE/NON DOT PHYSICAL/EVGENY BRUSH Septem 2024 3:13pm STROKELIKE SYMPTOMS February 01, 2025 10 :19pm Reason for Visit Admit Date 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 January 05, 2025 3:13pm Dysequilibrium February 01, 2025 10 :19pm Polysubstance abuse February 01, 2025 10 :19pm Right facial numbness February 01, 2025 10:19pm Slurred speech February 01, 2025 10 :19pm Tobacco abuse February 01, 2025 10 :19pm Chief Complaint Admit Date PE/NON DOT PHYSICAL/EVGENY BRUSH Septem 2024 3:40pm PE/NON DOT DRUG & BAT/EVGENY BRUSH/ NO SHOW January 03, 2025 3:41pm PE/NON DOT PHYSICAL/EVGENY BRUSH Septem 2024 3:13pm TIA VS CVA; WITH SLURRED SPEECH, DYSEQUI LIBRIUM February 01, 2025 10:23pm TIA VS CVA; WITH SLURRED SPEECH, DYSEQUI LIBRIUM February 02, 2025 1:27pm Reason for Visit Admit Date 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 January 05, 2025 3:13pm Polysubstance abuse February 01, 2025 10 :23pm Right facial numbness February 01, 2025 10:23pm TIA (transient ischemic attack) February 01, 2025 10:23pm Tobacco abuse February 01, 2025 10 :23pm Dysequilibrium February 01, 2025 10 :23pm Slurred speech February 01, 2025 10 :23pm Additional Source Comments INFORMATION SOURCE (unrecogn ized section and content) DATE CREATED AUTHOR 10/23/2022 [facility] ([place]) DATE CREATED AUTHOR 'S ADI ATBETY 02/18/2025 [facility] Care Teams (unrecognized sec tion and content) Team Status: Active Member Role/Relationship Status Dates No Primary Care Physician Family Provider Active No Primary Care Physician Primary Care Provider Active Team Status: Inactive Member Role/Relationship Status Dates No Primary Care Physician Primary Care Provider Active Start: January 03, 2025 End: January 03, 2025 No Primary Care Physician Referring Provider Active Start: January 03, 2025 End: January 03, 2025 JUAN JOSE Michelle Attending Provider Active Start: January 03, 2025 End: January 03, 2025 Team Status: Active Member Role/Relationship Status Dates No Primary Care Physician Primary Care Provider Active Start: January 03, 2025 No Primary Care Physician Referring Provider Active Start: January 03, 2025 JUAN JOSE Michelle Attending Provider Active Start: January 03, 2025 Team Status: Inactive Member Role/Relationship Status Dates No Primary Care Physician Primary Care Provider Active Start: January 03, 2025 End: January 03, 2025 No Primary Care Physician Referring Provider Active Start: January 03, 2025 End: January 03, 2025 JUAN JOSE Michelle Attending Provider Active Start: January 03, 2025 End: January 03, 2025 Team Status: Inactive Member Role/Relationship Status Dates No Primary Care Physician Primary Care Provider Active Start: January 05, 2025 End: January 05, 2025 No Primary Care Physician Referring Provider Active Start: January 05, 2025 End: January 05, 2025 JUAN JOSE Reyes Attending Provider Active Sta rt: January 05, 2025 End: January 05, 2025 Team Status: Active Member Role/Relationship Status Dates No Primary Care Physician Primary care physician Activ e Team Status: Inactive Member Role/Relationship Status Dates No Primary Care Physician Primary care physician Activ e Start: January 03, 2025 End: January 03, 2025 No Primary Care Physician Referring Provider Active Start: January 03, 2025 End: January 03, 2025 JUAN JOSE Michelle Attending physician Active Start: January 03, 2025 End: January 03, 2025 Team Status: Inactive Member Role/Relationship Status Dates No Primary Care Physician Primary care physician Activ e Start: January 03, 2025 End: January 03, 2025 No Primary Care Physician Referring Provider Active Start: January 03, 2025 End: January 03, 2025 JUAN JOSE Michelle Attending physician Active Start: January 03, 2025 End: January 03, 2025 Team Status: Inactive Member Role/Relationship Status Dates No Primary Care Physician Primary care physician Activ e Start: January 05, 2025 End: January 05, 2025 No Primary Care Physician Referring Provider Active Start: January 05, 2025 End: January 05, 2025 Michelet INGRAM PA Attending physician Active St art: January 05, 2025 End: January 05, 2025 Team Status: Active Member Role/Relationship Status Dates No Primary Care Physician Primary care physician Activ e Start: February 01, 2025 Dr. Darby Goldstein MD Emergency Departmen t Physician Active Start: February 01, 2025 Dr. Macho Rico , DO Admitting physician Active Start: February 01, 2025 Dr. Macho Rico DO Attending physician Active Start: February 01, 2025 Team Status: Inactive Member Role/Relationship Status Dates No Primary Care Physician Primary care physician Activ e Start: February 01, 2025 End: February 02, 2025 Dr. Darby Goldstein MD Emergency Departmen t Physician Active Start: February 01, 2025 End: February 02, 2025 Dr. Macho Rico , Admitting physician Active Start: February 01, 2025 End: February 02, 2025 Dr. Macho Rico DO Nurse Practitioner Active Start: February 01, 2025 End: February 02, 2025 Johny Patel MD Nurse Practitioner Active Start : February 01, 2025 End: February 02, 2025 Dr. Destiney Cardozo MD Nurse Practitioner Active St art: February 01, 2025 End: February 02, 2025 Leela Duckworth MD Nurse Practitioner Active S tart: February 01, 2025 End: February 02, 2025 Dr. Gogo Chan DO Nurse Practitioner Active Start: February 01, 2025 End: February 02, 2025 Dr. Alyssa Wooten MD Nurse Practitioner Active St art: February 01, 2025 End: February 02, 2025 Dr. Dedrick Cruz MD Nurse Practitioner Active Start: February 01, 2025 End: February 02, 2025 Dr. Marion Gibbs MD Nurse Practitioner Active S tart: February 01, 2025 End: February 02, 2025 Dr. Prince Lord MD Nurse Practitioner Active St art: February 01, 2025 End: February 02, 2025 Dr. Santos Mccormick MD Nurse Practitioner Active S tart: February 01, 2025 End: February 02, 2025 Dr. Issa Saldivar MD Nurse Practitioner Active Start: February 01, 2025 End: February 02, 2025 Dr. Mary Cavanaugh DO Nurse Practitioner Active Start: February 01, 2025 End: February 02, 2025 Julianna Cadet MD Nurse Practitioner Active S tart: February 01, 2025 End: February 02, 2025 Dr. Lorenzo Adkins MD Nurse Practitioner Active Start: February 01, 2025 End: February 02, 2025 Dr. Kaycee Garcia MD Nurse Practitioner Active S tart: February 01, 2025 End: February 02, 2025 Dr. Elvira Hidalgo MD Nurse Practitioner Active Start: February 01, 2025 End: February 02, 2025 Dr. Nay Mi MD Nurse Practitioner Active Start: February 01, 2025 End: February 02, 2025 Dr. Kevon Crespo MD Nurse Practitioner Active Start: February 01, 2025 End: February 02, 2025 Dr. Claritza Lozano MD Nurse Practitioner Active Start: February 01, 2025 End: February 02, 2025 Dr. West Umana MD Nurse Practitioner Active Start: February 01, 2025 End: February 02, 2025 Dr. Camila Fabian MD Nurse Practitioner Active St art: February 01, 2025 End: February 02, 2025 Zoie Valenzuela MD Nurse Practitioner Active St art: February 01, 2025 End: February 02, 2025 Dr. Jayda Chung MD Attending physician Active Start: February 01, 2025 End: February 02, 2025 Team Status: Active Member Role/Relationship Status Dates No Primary Care Physician Primary care physician Activ e Start: February 02, 2025 Dr. Amy Pimentel MD Attending physician Active Start: February 02, 2025 Team Status: Active Member Role/Relationship Status Dates No Primary Care Physician Primary care physician Activ e Start: February 02, 2025 Dr. Darby Goldstein MD Emergency Departmen t Physician Active Start: February 02, 2025 Dr. Macho Rico DO Admitting physician Active Start: February 02, 2025 Dr. Macho Rico , DO Nurse Practitioner Active Start: February 02, 2025 Johny Patel MD Nurse Practitioner Active Start : February 02, 2025 Dr. Destiney Cardozo MD Nurse Practitioner Active St art: February 02, 2025 Leela Duckworth MD Nurse Practitioner Active S tart: February 02, 2025 Dr. Gogo Chan , DO Nurse Practitioner Active Start: February 02, 2025 Dr. Alyssa Wooten MD Nurse Practitioner Active St art: February 02, 2025 Dr. Dedrick Cruz MD Nurse Practitioner Active Start: February 02, 2025 Dr. Marion Gibbs MD Nurse Practitioner Active S tart: February 02, 2025 Dr. Prince Lord MD Nurse Practitioner Active St art: February 02, 2025 Dr. Santos Mccormick MD Nurse Practitioner Active S tart: February 02, 2025 Dr. Issa Saldivar MD Nurse Practitioner Active Start: February 02, 2025 Dr. Mary Cavanaugh , Nurse Practitioner Active Start: February 02, 2025 Julianna Cadet MD Nurse Practitioner Active S tart: February 02, 2025 Dr. Lorenzo Adkins MD Nurse Practitioner Active Start: February 02, 2025 Dr. Kaycee Garcia MD Nurse Practitioner Active S tart: February 02, 2025 Dr. Elvira Hidalgo MD Nurse Practitioner Active Start: February 02, 2025 Dr. Nay Mi MD Nurse Practitioner Active Start: February 02, 2025 Dr. Kevon Crespo MD Nurse Practitioner Active Start: February 02, 2025 Dr. Claritza Lozano MD Nurse Practitioner Active Start: February 02, 2025 Dr. West Umana MD Nurse Practitioner Active Start: February 02, 2025 Dr. Camila Fabian MD Nurse Practitioner Active St art: February 02, 2025 Zoie Valenzuela MD Nurse Practitioner Active St art: February 02, 2025 Dr. Jayda Chung MD Attending physician Active Start: February 02, 2025 Dr. Jayda Chung MD Nurse Practitioner Active Start: February 02, 2025 Goals (unrecognized section and content) Goals may be documented in a n alternate sectionGoals may be documented in an alternate sectionGoals may be documented in an alternate sectionGoals may be documented in an alternate sectionGoals may be documented in an alternate section FOR RECORDS PERTAINING TO PATIENTS WHO ARE OR HAVE BEEN ENROLLED IN A CHEMICAL DEPENDENCY/SUBSTANCEABUSE PROGRAM, SOME INFORMATION MAY BE OMITTED. This clinical summary was aggregated from multiple sources. Caution should be exercised in using it in the provision of clinical care. This summary normalizes information from multiple sources, and as a consequence, information in this document may materially change the coding, format and clinical context of patient data. In addition, data may be omitted in some cases. CLINICAL DECISIONS SHOULD BE BASED ON THE PRIMARY CLINICAL RECORDS. [facility] provides no warranty or guarantee of the accuracy or completeness of information in this document.
[2025-03-20 12:08] LABS: ANTINUCLEAR ANTIBODIES DIRECT Negative (Negative)
== END | disposition home or self-care (01) ==
LOC: VSLAB 14:16
PROVIDERS: Referring Provider Counselor Mental Health; Visit Provider Counselor Mental Health
DX: F43.10 Post-traumatic stress disorder, unspecified (principal); F41.9 Anxiety disorder, unspecified; Z51.81 Encounter for therapeutic drug level monitoring; G43.009 Migraine without aura, not intractable, without status migrainosus; G45.9 Transient cerebral ischemic attack, unspecified
CPT/HCPCS: 86225; 80053; 80061; 80307; 82306; 82607; 83036; 83735; 84443; 85027; 85652; 86038; 86140; 86235